=== PATIENT | male | born 1985 | race African-American/Black ===

== ENCOUNTER 2018-05-04 15:59 | Emergency (ER) | payer MEDICARE, MEDICAID ==
[2018-05-04 16:12] VITALS: BP 147/78
[2018-05-04] MEDS ORDERED: BACLOFEN 20 MG TABLET PO ONE (16:59)
[2018-05-04] MEDS ORDERED: KETOROLAC TROMETHAMINE 60 MG/2 ML SDV IM ONE (16:59)
--- NOTE | 2018-05-04 17:04 | ER Document Report ---
ED Neck/Back Problem - General Chief Complaint: Back Pain Stated Complaint: BACK PAIN Time Seen by Provider: 05/04/18 16:59 Mode of Arrival: Ambulatory Information source: Patient Notes: Chief complaint: Upper mid back pain History of complain:( obtained from----patient) 33 years old male with a history of sleep apnea was supposed to sleep with CPAP machine, was not sleeping with it for the last few days due to lack of electricity. Developed mid upper back pain therefore present to the ED. Denies any radiation of the pain to the arms denies any numbness tingling sensation. Denies any weakness. Denies any difficulty in breathing. Onset: Gradual Duration: Last 3 4 days Severity: Moderate Quality: Sharp Context: As above Exacerbating factor and relieving factors: Change of position REVIEW OF SYSTEMS: CONSTITUTIONAL : Denies fever, chills, or sweats. Denies recent illness. EENT: Denies eye, ear, throat, or mouth pain or symptoms. Denies nasal or sinus congestion or discharge. Denies throat, tongue, or mouth swelling or difficulty swallowing. CARDIOVASCULAR: Denies chest pain. Denies palpitations or racing or irregular heart beat. Denies ankle edema. RESPIRATORY: Denies cough, cold, or chest congestion. Denies shortness of breath, difficulty breathing, or wheezing. GASTROINTESTINAL: Denies distention. Denies nausea, vomiting, or diarrhea. Denies blood in vomitus, stools, or per rectum. Denies black, tarry stools. Denies constipation. GENITOURINARY: Denies difficulty urinating, painful urination, burning, frequency, blood in urine, or discharge. FEMALE GENITOURINARY: Denies vaginal bleeding, heavy or abnormal periods, irregular periods. Denies vaginal discharge or odor. MUSCULOSKELETAL: Denies back or neck pain or stiffness. Denies joint pain or swelling. SKIN: Denies rash, lesions or sores. HEMATOLOGIC : Denies easy bruising or bleeding. LYMPHATIC: Denies swollen, enlarged glands. NEUROLOGICAL: Denies confusion or altered mental status. Denies passing out or loss of consciousness. Denies dizziness or lightheadedness. Denies headache. Denies weakness or paralysis or loss of use of either side. Denies problems with gait or speech. Denies sensory loss, numbness, or tingling. Denies seizures. PSYCHIATRIC: Denies anxiety or stress. Denies depression, suicidal ideation, or homicidal ideation. ALL OTHER SYSTEMS REVIEWED AND NEGATIVE. PHYSICAL EXAMINATION: GENERAL: Well-appearing, well-nourished and in no acute distress. Morbid obesity mild to moderate discomfort HEAD: Atraumatic, normocephalic. EYES: Pupils equal round and reactive to light, extraocular movements intact, conjunctiva are normal. ENT: Nares patent, oropharynx clear without exudates. Moist mucous membranes. NECK: Normal range of motion, supple without lymphadenopathy LUNGS: Breath sounds clear to auscultation bilaterally and equal. No wheezes rales or rhonchi. HEART: Regular rate and rhythm without murmurs ABDOMEN: Soft, nontender, nondistended abdomen. No guarding, no rebound. No masses appreciated. Examination of genitals-deferred Musculoskeletal: Normal range of motion, no pitting or edema. No cyanosis. NEUROLOGICAL: Cranial nerves grossly intact. Normal speech, normal gait. Normal sensory, motor exams PSYCH: Normal mood, normal affect. SKIN: Warm, Dry, normal turgor, no rashes or lesions noted. Examination of the back= sharp tenderness noted over the left trapezoid muscle at the insertion to the scapula. Dictation was performed using [employer] voice recognition software TRAVEL OUTSIDE OF THE [place] IN LAST 30 DAYS: No - HPI Notes: Dictated - Related Data Allergies/Adverse Reactions: No Known Allergies Allergy (Verified 05/04/18 16:03) Past Medical History - Social History Smoking Status: Never Smoker Frequency of alcohol use: None Drug Abuse: None Lives with: Family Family History: Reviewed & Not Pertinent Patient has suicidal ideation: No Patient has homicidal ideation: No - Past Medical History Cardiac Medical History: Reports: Hx Hypertension Denies: Hx Heart Attack Pulmonary Medical History: Denies: Hx Asthma Neurological Medical History: Denies: Hx Cerebrovascular Accident, Hx Seizures Renal/ Medical History: Denies: Hx Peritoneal Dialysis GI Medical History: Denies: Hx Hepatitis, Hx Hiatal Hernia, Hx Ulcer Infectious Medical History: Denies: Hx Hepatitis Past Surgical History: Denies: Hx Open Heart Surgery, Hx Pacemaker Review of Systems - Review of Systems Notes: Dictated Physical Exam - Vital signs Vitals: Temp Pulse Resp BP Pulse Ox 98.7 F 92 18 147/78 H 96 05/04/18 16:10 05/04/18 16:10 05/04/18 16:10 05/04/18 16:10 05/04/18 16:10 - Notes Notes: Dictated Course - Re-evaluation Re-evalutation: 05/04/18 17:03 Given Toradol and baclofen - Vital Signs Vital signs: Temp Pulse Resp BP Pulse Ox 98.7 F 92 18 147/78 H 96 05/04/18 16:10 05/04/18 16:10 05/04/18 16:10 05/04/18 16:10 05/04/18 16:10 Discharge - Discharge Clinical Impression: Upper back pain Condition: Fair Disposition: HOME, SELF-CARE Instructions: Muscle Strain ([facility]) Prescriptions: Baclofen [Baclofen 20 Mg Tablet] 20 mg PO TID #30 tablet Hydrocodone/Acetaminophen [Hydrocodon-Acetaminophen 5-325] 1 each PO TID #20 tablet Referrals: EUSEBIO RAMIREZ MD [Primary Care Provider] - Follow up as needed
== END 2018-05-04 17:00 | disposition home or self-care (01) ==
LOC: ER 15:59
DX: M54.6 Pain in thoracic spine (principal)
CPT/HCPCS: 99283; 96372; J1885; A9270; J3490

== ENCOUNTER 2020-09-02 20:45 | Emergency (ER) | payer MEDICARE, MEDICAID ==
[2020-09-02] MEDS ORDERED: ACETAMINOPHEN 325 MG TABLET PO ONE (21:15)
[2020-09-02] MEDS ORDERED: DEXAMETHASONE SOD PHOS INJ 10 MG/1 ML VIAL IV ONE (21:15)
[2020-09-02] MEDS ORDERED: IPRATROPIUM/ALBUTEROL 0.5-2.5 MG/3 ML AMPUL NEB ONE (21:16)
--- NOTE | 2020-09-02 21:17 | ER Document Report ---
ED General - General Chief Complaint: Shortness Of Breath Stated Complaint: SHORTNESS OF BREATH Primary Care Provider: ISADORA ANSARI MD [Primary Care Provider] - Follow up as needed TRAVEL OUTSIDE OF THE [place] IN LAST 30 DAYS: No - HPI Notes: Chief Complaint: Shortness of breath cough Covid Historian: History obtained from patient HPI: This is a 35-year-old male presents to the ER complaining of shortness of breath related to Covid infection. Patient says he tested positive on 08/30. No treatments tried. Denies fevers, chest pain, abdominal pain, nausea vomiting diarrhea. Patient is tolerating p.o. intake. Denies history of asthma. pt does have sleep apnea and uses cpap at night. ROS: Constitutional: no fevers. HEENT: no BRYANT, sore throat, or vision changes. CV: no chest pain or palpitations. Resp: Shortness of breath, cough GI: no abdominal pain, or n/v/d. : no dysuria, hematuria, or incont. MSK: no back pain, no joint swelling/redness. Skin: no rashes or itching. Neuro: no seizures, weakness, numbness, or confusion. Hematological: no ecchymosis or easy bleeding. Endocrine: no polyuria/polydipsia, no heat/cold intolerance. Psych: no SI/HI, AH/VH or memory loss. PMHx: Reviewed and agree as charted by RN. PSHx: Reviewed and agree as charted by RN. SOCHx: Reviewed and agree as charted by RN. FHX: No significant familial comorbid conditions directly related to patient complaint Current Medications: Reviewed and agree with the patient medications as charted by the RN. Allergies: Reviewed and agree with the listed allergies as charted by the RN Physical Exam: Vitals: Reviewed in chart as documented by RN. General: Alert and in NAD. Head: Normocephalic; atraumatic Eyes: PERRLA, Conjunctivae clear sclerae non-icteric bilat ENT: no soft palate swelling or uvular deviation Neck: trachea midline, no unilateral swelling/tenderness/lymphadenopathy CV: RRR, no M/R/G; symmetric distal pulses Resp: tachypenic, poor air movement, expiratory wheeze to bilat mid . no stridor GI: abd soft and nondistended. NTTP. normal BS. no masses/HSM. no CVAT bilat MSK: FROM of all extremities. No midline CTL spine tenderness/deformity Skin: warm, moist, good turgor. no rash/lesions Neuro: Alert and oriented X 4. following CN 2-12 intact. no unilateral weakness/numbness Psych: No SI/HI or AH/VH. Medical Decision-Making: Medical Decision-making/Differential Diagnosis: Consider various etiologies including but not limited to covid, ARF, ARDS, asthma exacerbation, pneumonia, CAP, viral pneumonia, hypoxia, strep pharyngitis, viral pharyngitis, other pharyngitis, celeste-tonsillar abscess (unlikely), retropharyngeal abscess (unlikely), Acute Suppurative Otitis media, otalgia, upper respiratory infection, viral syndrome, bronchitis, sinusitis, ect Plan- will get ecg, cxr, basic labs, gentle IVF, 10mg IV decadron, RT duoneb, prn supplemenal O2. Pts O2 sats are mid-high 90's on RA. he is tachypneic . symptoms improving w/ nebs per pt. able to speak in full sentences. pt does have expiratory wheezes. will continue to monitor pt, possible 60min neb vs terbutaline. prn abx. pt is alert and oriented in the ED and sitting [place] doing nebs at this time. pending labs/imaging at this time. This course of action was discussed with the patient and/or family. They were amenable to this, verbalized understanding, and were without further questions. - Related Data Allergies/Adverse Reactions: No Known Allergies Allergy (Verified 05/04/18 16:03) Home Medications: Metformin. Metoprolol Past Medical History - Social History Smoking Status: Never Smoker Chew tobacco use (# tins/day): No Family History: Reviewed & Not Pertinent - Past Medical History Cardiac Medical History: Reports: Hx Hypertension Denies: Hx Heart Attack Pulmonary Medical History: Denies: Hx Asthma Neurological Medical History: Denies: Hx Cerebrovascular Accident, Hx Seizures Endocrine Medical History: Reports: Hx Diabetes Mellitus Type 2 Renal/ Medical History: Denies: Hx Peritoneal Dialysis GI Medical History: Denies: Hx Hepatitis, Hx Hiatal Hernia, Hx Ulcer Infectious Medical History: Denies: Hx Hepatitis Past Surgical History: Denies: Hx Open Heart Surgery, Hx Pacemaker Physical Exam - Vital signs Vitals: Resp 40 H 09/02/20 20:50 Course - Re-evaluation Re-evalutation: 09/02/20 23:20 respiratory rate in mid 20's, monitor not accurate as it keeps reports RR in the 40's. Pt is mildly tachypneic but in no acute resp distress. improving since steroids and nebs. cxr notes LLL infiltrate, likely covid related. Pt is afebrile and has a normal WBC- sepsis unlikely. will get CTA r/o r/o PE. 09/02/20 23:22 09/03/20 01:43 pt feeling better after IVF, decadron, and duoneb. O2 sats 95% on RA. RR 25. monitor reports rate at 40 but this is not accurate. CTA neg for PE- multifocal pneumonitis noted discussed resulted and plan with pt. he will monitor his O2 at home, instructed to return if 90% or lower. wear cpap at night. will d/c w/ azithro, prednisone, and albuterol inhaler. pcp f/u in 2 days for recheck. return factors discussed. - Vital Signs Vital signs: Temp Pulse Resp BP Pulse Ox 98.7 F 120 H 24 H 152/70 H 96 09/03/20 01:20 09/02/20 20:58 09/03/20 01:20 09/03/20 01:01 09/03/20 01:20 - Laboratory Results Result Diagrams: 09/02/20 21:35 09/02/20 21:35 Laboratory Results Interpreted: 09/02/20 09/02/20 21:35 21:35 Hgb 13.2 L MCV 79 L MCH 26.6 L RDW 14.6 H BUN 6 L Glucose 140 H Critical Laboratory Results Reviewed: No Critical Results - Radiology Results Critical Radiology Results Reviewed: No Critical Results Attending or Supervising Physician who Reviewed Radiology: EDENILSON STARR - LLL infiltrate on CXR - EKG Interpretation by Mo EKG shows normal: Sinus rhythm Rate: Tachycardia - 104 Rhythm: NSR [place]/QRS: No: Right axis deviation, Left axis deviation, RBBB, LBBB, IVCD, LAHB/LAFB, LPHB/LPFB, Bifasicular block Voltage: No: Increased voltage, Consistent with LVH, Consistent with RVH, Decreased voltage, Throughout, Limb leads When compared to previous EKG there are: Previous EKG unavailable - reviewed by ED physician- no stemi. Discharge - Discharge Clinical Impression: COVID-19, SOB (shortness of breath) Left lower lobe pneumonia Qualifiers: Pneumonia type: due to unspecified organism Qualified Code(s): J18.9 - Pneumonia, unspecified organism Condition: Stable Disposition: HOME, SELF-CARE Prescriptions: Prednisone [Deltasone 20 mg Tablet] 3 tab PO DAILY 5 Days #15 tablet Albuterol Sulfate [Proair HFA Inhalation Aerosol 8.5 gm MDI] 2 puff IH Q4H PRN #1 mdi PRN Reason: Azithromycin [Zithromax 250 mg Tablet] 250 mg PO ASDIR PRN #6 tablet PRN Reason: Referrals: ISADORA ANSARI MD [Primary Care Provider] - Follow up as needed
[2020-09-02] MEDS ORDERED: RINGERS SOLUTION,LACTATED 1,000 ML IV ONE (21:54)
--- NOTE | 2020-09-02 22:04 | RADIOLOGY REPORT (SQ) ---
EXAM DESCRIPTION: XR CHEST 1 VIEW COMPLETED DATE/TME: 09/02/2020 21:48 CLINICAL HISTORY: 35 years, Male, sob, +covid COMPARISON: None. TECHNIQUE: Upright portable chest x-ray FINDINGS: Cardiomediastinal silhouette without enlargement. Mild to moderate dilatation of the right hemidiaphragm. Suspected mild left lower lobe infiltrate. No additional findings in chest. IMPRESSION: Mild left lower lobe infiltrate.
[2020-09-02 22:47] LABS: ABSOLUTE LYMPHOCYTES (AUTO) 1.1 10^3/uL (0.5-4.7); ABSOLUTE MONOCYTES (AUTO) 0.4 10^3/uL (0.1-1.4); ABSOLUTE NEUT (AUTO) 4.8 10^3/uL (1.7-8.2); BASOPHILS % (AUTO) 0.2 % (0-2); EOSINOPHILS % (AUTO) 0.4 % (0-6); HEMATOCRIT 39.5 % (37.9-51.0); HEMOGLOBIN 13.2 g/dL (13.5-17.0); LYMPHOCYTES % (AUTO) 17.2 % (13-45); MEAN CORPUSCULAR HEMOGLOBIN 26.6 pg (27.0-33.4); MEAN CORPUSCULAR HGB CONC 33.5 g/dL (32.0-36.0); MEAN CORPUSCULAR VOLUME 79 fl (80-97); MONOCYTES % (AUTO) 6.3 % (3-13); PLATELET COUNT 161 10^3/uL (150-450); RED BLOOD COUNT 4.99 10^6/uL (4.35-5.55); RED CELL DISTRIBUTION WIDTH 14.6 % (11.5-14.0); SEGMENTED NEUTROPHILS % (AUTO) 75.9 % (42-78); TOTAL CELLS COUNTED % (AUTO) 100 %; WHITE BLOOD COUNT 6.3 10^3/uL (4.0-10.5)
[2020-09-02 22:59] LABS: ANION GAP 6 (5-19); BLOOD UREA NITROGEN 6 mg/dL (7-20); CALCIUM 8.7 mg/dL (8.4-10.2); CARBON DIOXIDE 29 mmol/L (22-30); CHLORIDE 103 mmol/L (98-107); GLUCOSE 140 mg/dL (75-110); POTASSIUM 4.1 mmol/L (3.6-5.0)
--- NOTE | 2020-09-03 00:25 | RADIOLOGY REPORT (SQ) ---
EXAM DESCRIPTION: CT CHEST ANGIOGRAPHY WITH IV CONTRAST COMPLETED DATE/TME: 09/03/2020 00:10 CLINICAL HISTORY: 35 years, Male, covid +, tachypnea, sob CREAT 0.86 COMPARISON: None. TECHNIQUE: 1090 Images stored on PACS. All CT scanners at this facility use dose modulation, iterative reconstruction, and/or weight based dosing when appropriate to reduce radiation dose to as low as reasonably achievable (ALARA). Axial CTA images with coronal and sagittal MIPS [facility]: Dose Right [facility]: CareDose [facility]: Dose Right [facility]: Teradose 4D [facility]: [employer] LIMITATIONS: None. FINDINGS: Contrast bolus is significantly suboptimal. There is no large or central pulmonary embolus. Evaluation of the distal arterial branches is nondiagnostic. Negative for thoracic aortic aneurysm or dissection. The heart and pericardium are unremarkable. Limited evaluation of the upper abdomen shows fatty infiltrative change to the liver. Osseous structures are grossly intact. No pneumothorax. Airways are patent. Elevation of the right hemidiaphragm. Multifocal airspace opacities bilaterally consistent with multifocal pneumonitis. IMPRESSION: Suboptimal contrast bolus as above. No large or central pulmonary embolus. Multifocal pneumonitis. Imaging features can be seen with viral pneumonia, though are nonspecific and can occur with a variety of infectious and noninfectious processes. [PneInd] TECHNICAL DOCUMENTATION: Quality ID # [id number]: Final reports with documentation of one or more dose reduction techniques (e.g., Automated exposure control, adjustment of the mA and/or kV according to patient size, use of iterative reconstruction technique) copyright 2011 [employer]- All Rights Reserved
[2020-09-03 03:40] VITALS: BP 156/74
--- NOTE | 2020-09-03 07:40 | EKG REPORT ---
SEVERITY:- BORDERLINE ECG - SINUS TACHYCARDIA BORDERLINE T WAVE ABNORMALITIES : Confirmed by: Jayesh Juarez MD 03-Sep-2020 07:40:07
== END 2020-09-03 04:12 | disposition home or self-care (01) ==
LOC: ER 20:45
DX: U07.1 COVID-19 (principal); J12.82 Pneumonia due to coronavirus disease 2019; R06.02 Shortness of breath; E11.9 Type 2 diabetes mellitus without complications; G47.30 Sleep apnea, unspecified
CPT/HCPCS: 93005; 94640; 99285; 96361; 96374; 36415; 85025; 80048; 71045; 71275; 93010; A9270; J7120; J1100

== ENCOUNTER 2020-09-04 20:58 | Inpatient (IN) | payer MEDICARE, MEDICAID ==
--- OUTSIDE RECORDS SUMMARY | 2020-09-04 21:32 | XMS REPORT ---
:1985 [facility] [address] [place] [address] Care Team Providers Name Role Phone Unavailable Unavailable Unavailable Allergies, Adverse Reactions, Alerts This patient has no known allergies or adverse reactions. Medications This patient has no known medications. Problems This patient has no known problems. Procedures This patient has no known procedures. Results This patient has no known results. Social History This patient has no known social history. Vital Signs This patient has no known vital signs.
[2020-09-04] MEDS ORDERED: ACETAMINOPHEN 325 MG TABLET PO ONE (21:58)
[2020-09-04] MEDS ORDERED: DEXAMETHASONE SOD PHOSPHATE INJ 4 MG/1 ML VIAL IV ONE (21:58)
--- NOTE | 2020-09-04 22:08 | ER Document Report ---
ED General - General Chief Complaint: Shortness Of Breath Stated Complaint: SHORTNESS OF BREATH Time Seen by Provider: 09/04/20 21:57 Primary Care Provider: ISADORA ANSARI MD [Primary Care Provider] - Follow up as needed TRAVEL OUTSIDE OF THE [place] IN LAST 30 DAYS: No - HPI Notes: 35-year-old male presents with shortness of breath. Patient is known to be Covid positive. He was seen in the emergency department 2 days ago for evaluation. He presents with progressively worsening shortness of breath, states that he cannot breathe. He is having an awful cough and lightheadedness. Some vomiting if he eats. He denies previous history of lung disease. He is a non-smoker. There is some limitation to HPI given patient's respiratory status. - Related Data Allergies/Adverse Reactions: No Known Allergies Allergy (Verified 05/04/18 16:03) Past Medical History - General Information source: Patient - Social History Smoking Status: Never Smoker Family History: Reviewed & Not Pertinent - Past Medical History Cardiac Medical History: Reports: Hx Hypertension Denies: Hx Heart Attack Pulmonary Medical History: Denies: Hx Asthma Neurological Medical History: Denies: Hx Cerebrovascular Accident, Hx Seizures Endocrine Medical History: Reports: Hx Diabetes Mellitus Type 2 Renal/ Medical History: Denies: Hx Peritoneal Dialysis GI Medical History: Denies: Hx Hepatitis, Hx Hiatal Hernia, Hx Ulcer Infectious Medical History: Denies: Hx Hepatitis Past Surgical History: Denies: Hx Open Heart Surgery, Hx Pacemaker Review of Systems - Review of Systems Constitutional: Fever EENT: No symptoms reported Cardiovascular: denies: Chest pain Respiratory: Cough, Short of breath Gastrointestinal: denies: Abdominal pain Genitourinary: No symptoms reported Male Genitourinary: No symptoms reported Musculoskeletal: No symptoms reported Skin: No symptoms reported Hematologic/Lymphatic: No symptoms reported Neurological/Psychological: No symptoms reported Physical Exam - Vital signs Vitals: Temp 103.1 F H 09/04/20 20:58 - General General appearance: Appears well, Alert In distress: Moderate - HEENT Head: Normocephalic, Atraumatic Extraocular movements intact: Yes Pupils: PERRL - Respiratory Respiratory status: Labored, Tachypnea Breath sounds: Nonproductive cough, Rhonchi - Cardiovascular Rhythm: Tachycardia Heart sounds: Normal auscultation Normal capillary refill: Yes - Abdominal Inspection: Obese Tenderness: Nontender - Extremities General lower extremity: No: Edema - Neurological Neuro grossly intact: Yes Cognition: Normal Orientation: AAOx4 - Psychological Associated symptoms: Anxious - Skin Skin Temperature: Warm Course - Re-evaluation Re-evalutation: 35-year-old male arrives in respiratory distress secondary to his known Covid infection. He is 88% on arrival. On exam patient is tachypneic and has labored breathing, he has rhonchi at the bases. Patient was placed on nasal cannula which did improve his status, however given the extent of his respiratory status decision was made to put patient on BiPAP. I reviewed his ED visit from 2 days ago. He had a CTA done which did not demonstrate any central pulmonary embolus, though there was some limitation to the study. He was discharged home with prednisone and azithromycin. I suspect that his presentation is is due to likely progression of known Covid illness. He has significant risk factors such as morbid obesity, diabetes and hypertension. No pulmonary disease to suggest asthma or COPD exacerbation. 09/05/20 00:31 Leukocytosis present, this could be due to patient's known steroid use. Chronic microcytic anemia. Electrolytes within normal limits. Creatinine within normal limits. Mild transaminitis. Elevated CRP and D-dimer, expect these to be elev ated with known Covid infection. Given that patient just had a CT done 2 days ago, will hold on this study today. Patient was reassessed. He did appear to be more comfortable on BiPAP. He reports that his breathing has improved. I discussed with him that given he is on BiPAP and had some hypoxia, admission is appropriate, he is agreeable for admission for further treatment of respiratory disease due to Covid. 09/05/20 00:57 Patient to be admitted to the hospital service - Vital Signs Vital signs: Temp Pulse Resp BP Pulse Ox 103.1 F H 43 H 139/71 H 100 09/04/20 20:58 09/04/20 23:02 09/04/20 23:02 09/04/20 21:06 - Laboratory Results Result Diagrams: 09/04/20 22:49 09/04/20 22:49 Laboratory Results Interpreted: 09/04/20 09/04/20 09/04/20 22:49 22:49 22:49 WBC 13.7 H D Hgb 12.4 L Hct 37.6 L MCV 78 L MCH 25.8 L RDW 14.2 H Lymph % (Auto) 6.0 L Absolute Neuts (auto) 12.4 H Seg Neutrophils % 90.6 H D-Dimer 0.59 H Glucose 240 H AST 74 H ALT 57 H C-Reactive Protein 217.0 H Urine Protein Urine Glucose (UA) Urine Ascorbic Acid 09/04/20 23:00 WBC Hgb Hct MCV MCH RDW Lymph % (Auto) Absolute Neuts (auto) Seg Neutrophils % D-Dimer Glucose AST ALT C-Reactive Protein Urine Protein 100 H Urine Glucose (UA) 150 H Urine Ascorbic Acid 40 H Critical Laboratory Results Reviewed: No Critical Results - Radiology Results Critical Radiology Results Reviewed: No Critical Results Discharge - Discharge Clinical Impression: Acute respiratory disease due to COVID-19 virus Disposition: ADMITTED INPATIENT Admitting Provider: [facility] Unit Admitted: [facility] Referrals: ISADORA ANSARI MD [Primary Care Provider] - Follow up as needed
[2020-09-04] MEDS ORDERED: GUAIFENESIN 600 MG TABLET.SA PO ONE (22:24)
[2020-09-04] MEDS ORDERED: RINGERS SOLUTION,LACTATED 1,000 ML IV ONE (22:25)
--- NOTE | 2020-09-04 22:59 | RADIOLOGY REPORT (SQ) ---
EXAM DESCRIPTION: XR CHEST 1 VIEW COMPLETED DATE/TME: 09/04/2020 22:15 CLINICAL HISTORY: 35 years, Male, COVID EXAM DESCRIPTION: CHEST SINGLE VIEW CLINICAL HISTORY: COVID COMPARISON: None. FINDINGS: Single view of the chest is submitted. There are bilateral consolidations. Lung volumes are low. Cardiac silhouette is normal. There is no significant pulmonary vascular engorgement. IMPRESSION: Bilateral consolidations.
[2020-09-04 23:06] LABS: ABSOLUTE LYMPHOCYTES (AUTO) 0.8 10^3/uL (0.5-4.7); ABSOLUTE MONOCYTES (AUTO) 0.4 10^3/uL (0.1-1.4); ABSOLUTE NEUT (AUTO) 12.4 10^3/uL (1.7-8.2); BASOPHILS % (AUTO) 0.2 % (0-2); HEMATOCRIT 37.6 % (37.9-51.0); HEMOGLOBIN 12.4 g/dL (13.5-17.0); MEAN CORPUSCULAR HEMOGLOBIN 25.8 pg (27.0-33.4); MEAN CORPUSCULAR VOLUME 78 fl (80-97); MONOCYTES % (AUTO) 3.2 % (3-13); PLATELET COUNT 222 10^3/uL (150-450); RED BLOOD COUNT 4.81 10^6/uL (4.35-5.55); RED CELL DISTRIBUTION WIDTH 14.2 % (11.5-14.0); SEGMENTED NEUTROPHILS % (AUTO) 90.6 % (42-78); TOTAL CELLS COUNTED % (AUTO) 100 %
[2020-09-04 23:07] LABS: WHITE BLOOD COUNT 13.7 10^3/uL (4.0-10.5)
[2020-09-04 23:17] LABS: APPEARANCE,URINE CLEAR; BILIRUBIN,URINE NEGATIVE (NEGATIVE); COLOR,URINE YELLOW; GLUCOSE, URINE 150 mg/dL (NEGATIVE); KETONES,URINE NEGATIVE (NEGATIVE); LEUKOCYTE ESTERASE,URINE NEGATIVE (NEGATIVE); NITRITE,URINE NEGATIVE (NEGATIVE); PROTEIN,URINE 100 mg/dL (NEGATIVE); URINE SPECIFIC GRAVITY 1.014; UROBILINOGEN,URINE NEGATIVE mg/dL (<2.0)
[2020-09-04 23:22] LABS: ALBUMIN 3.9 g/dL (3.5-5.0); ALKALINE PHOSPHATASE 61 U/L (38-126); ANION GAP 10 (5-19); ASPARTATE AMINO TRANSFERASE 74 U/L (17-59); BILIRUBIN,DIRECT 0.2 mg/dL (0.0-0.4); BILIRUBIN,TOTAL 0.4 mg/dL (0.2-1.3); BLOOD UREA NITROGEN 9 mg/dL (7-20); CALCIUM 9.1 mg/dL (8.4-10.2); CARBON DIOXIDE 25 mmol/L (22-30); CHLORIDE 102 mmol/L (98-107); GLUCOSE 240 mg/dL (75-110); POTASSIUM 4.3 mmol/L (3.6-5.0)
[2020-09-05] MEDS ORDERED: KETOROLAC TROMETHAMINE INJ/PF 30 MG/1 ML SDV IV ONE (00:32)
[2020-09-05 01:34] LABS: INTERNATIONAL RATION (INR) 0.99; PROTHROMBIN TIME 13.3 SEC (11.4-15.4)
[2020-09-05 01:35] LABS: PARTIAL THROMBOPLASTIN TIME 32.2 SEC (23.5-35.8)
[2020-09-05] MEDS ORDERED: ACETAMINOPHEN 325 MG TABLET PO PRN (02:04)
[2020-09-05] MEDS ORDERED: GLUCAGON,HUMAN RECOMB 1 MG INJ IM PRN (02:14)
[2020-09-05] MEDS ORDERED: DEXTROSE 50%-WATER 25 GM/50 ML DISP.SYRIN IV PRN ×2 (02:14)
[2020-09-05] MEDS ORDERED: DEXTROSE 40% GEL 15 GM TUBE PO PRN ×2 (02:14)
--- NOTE | 2020-09-05 02:28 | PDOC H&P ---
History of Present Illness Admission Date/PCP: 09/05/20 01:06 ISADORA ANSARI MD Patient complains of: Shortness of breath History of Present Illness: BEHZAD FERRARO JR is a 35 year old male The patient is not feeling well now for about 9 days. He has fever, dry cough. He vomited a few times but it has resolved. No diarrhea. For last couple days developed increasing shortness of breath. He was in the emergency department 2 days ago. He tested positive for coronavirus. He had a CT pulmonary angiogram which did not reveal pulmonary emboli. He was stable on room air and he was discharged home. He continued to have more of more shortness of breath. He came back to the emergency department. He was placed on BiPAP. Now he feels comfortable. Past Medical History Cardiac Medical History: Reports: Hypertension Denies: Myocardial Infarction Pulmonary Medical History: Reports: Sleep Apnea Denies: Asthma Neurological Medical History: Reports: None Denies: Seizures Endocrine Medical History: Reports: Diabetes Mellitus Type 2 Malignancy Medical History: Reports: None GI Medical History: Denies: Hepatitis, Hiatal Hernia Psychiatric Medical History: Reports: None Hematology: Reports: Anemia Denies: Sickle Cell Disease Infectious Medical History: Reports: None Past Surgical History Past Surgical History: Reports: Herniorrhaphy Social History Information Source: Patient Lives with: Alone Smoking Status: Never Smoker Frequency of Alcohol Use: None Hx Recreational Drug Use: No Drugs: None - Advance Directive Resuscitation Status: Full Code Surrogate healthcare decision maker:: His sister Family History Family History: Reviewed & Not Pertinent Parental Family History Reviewed: Yes Children Family History Reviewed: Yes Sibling(s) Family History Reviewed.: Yes Medication/Allergy Home Medications: Baclofen [Baclofen 20 Mg Tablet] 20 mg PO TID #30 tablet 05/04/18 Hydrocodone/Acetaminophen [Hydrocodon-Acetaminophen 5-325] 1 each PO TID #20 tablet 05/04/18 Albuterol Sulfate [Proair HFA Inhalation Aerosol 8.5 gm MDI] 2 puff IH Q4H PRN #1 mdi 09/03/20 Azithromycin [Zithromax 250 mg Tablet] 250 mg PO ASDIR PRN #6 tablet 09/03/20 Prednisone [Deltasone 20 mg Tablet] 3 tab PO DAILY 5 Days #15 tablet 09/03/20 Allergies/Adverse Reactions: No Known Allergies Allergy (Verified 05/04/18 16:03) Review of Systems Constitutional: PRESENT: chills, fever(s), weakness Eyes: ABSENT: visual disturbances Ears: ABSENT: hearing changes Cardiovascular: ABSENT: chest pain, dyspnea on exertion, edema, orthropnea, palpitations Respiratory: PRESENT: cough - No sputum production, dyspnea. ABSENT: hemoptys is, sputum Gastrointestinal: PRESENT: vomiting - It has resolved Genitourinary: ABSENT: dysuria, hematuria Integumentary: ABSENT: rash, wounds Neurological: ABSENT: abnormal gait, abnormal speech, confusion, dizziness, focal weakness, syncope Physical Exam Vital Signs: Temp Pulse Resp BP Pulse Ox 103.1 F H 36 H 117/55 L 100 09/04/20 20:58 09/05/20 01:02 09/05/20 01:02 09/04/20 21:06 Intake & Output 09/03/20 09/04/20 09/05/20 06:59 06:59 06:59 Intake Total 1000 Balance 1000 Weight 163 kg General appearance: PRESENT: mild distress, obese Head exam: PRESENT: atraumatic, normocephalic Eye exam: PRESENT: conjunctiva pink, EOMI, PERRLA. ABSENT: scleral icterus Ear exam: PRESENT: normal external ear exam Neck exam: ABSENT: carotid bruit, JVD, lymphadenopathy, thyromegaly Respiratory exam: PRESENT: crackles, wheezes - Few scattered wheezes Cardiovascular exam: PRESENT: RRR. ABSENT: diastolic murmur, rubs, systolic murmur Pulses: PRESENT: normal dorsalis pedis pul GI/Abdominal exam: PRESENT: normal bowel sounds, soft. ABSENT: distended, guarding, mass, organolmegaly, rebound, tenderness Rectal exam: PRESENT: deferred Musculoskeletal exam: PRESENT: ambulatory Neurological exam: PRESENT: alert, awake, oriented to person, oriented to place, oriented to time, oriented to situation, CN II-XII grossly intact. ABSENT: motor sensory deficit Skin exam: PRESENT: dry, intact, warm. ABSENT: cyanosis, rash Results Laboratory Results: 09/04/20 22:49 09/04/20 22:49 09/04/20 09/04/20 09/04/20 22:49 22:49 23:00 WBC 13.7 H D RBC 4.81 Hgb 12.4 L Hct 37.6 L MCV 78 L MCH 25.8 L MCHC 33.0 RDW 14.2 H Plt Count 222 Seg Neutrophils % 90.6 H Sodium 137.0 Potassium 4.3 Chloride 102 Carbon Dioxide 25 Anion Gap 10 BUN 9 Creatinine 0.91 Est GFR ( Amer) > 60 Glucose 240 H Calcium 9.1 Ferritin 239.00 Total Bilirubin 0.4 AST 74 H Alkaline Phosphatase 61 C-Reactive Protein 217.0 H Total Protein 7.0 Albumin 3.9 Urine Color YELLOW Urine Appearance CLEAR Urine pH 7.0 Ur Specific [place] 1.014 Urine Protein 100 H Urine Glucose (UA) 150 H Urine Ketones NEGATIVE Urine Blood NEGATIVE Urine Nitrite NEGATIVE Ur Leukocyte Esterase NEGATIVE Urine WBC (Auto) 3 Urine RBC (Auto) 1 Impressions: Chest X-Ray 09/04/20 21:58 IMPRESSION: Bilateral consolidations. Assessment and Plan - Diagnosis (1) Acute respiratory failure with hypoxia Is this a current diagnosis for this admission?: Yes Plan: The patient is on BiPAP at this point. Continue BiPAP for now. Close monitoring of respiratory status. (2) Pneumonia due to COVID-19 virus Is this a current diagnosis for this admission?: Yes Plan: Bilateral infiltrates, consistent with bilateral pneumonia secondary to coronavirus. Supportive measures. Dexamethasone. Monitor biomarkers. May repeat CT scan of the chest if D-dimer continue to rise. (3) Hypertension Qualifiers: Hypertension type: essential hypertension Qualified Code(s): I10 - Essential (primary) hypertension Is this a current diagnosis for this admission?: Yes Plan: Continue metoprolol and amlodipine. (4) DM2 (diabetes mellitus, type 2) Qualifiers: Diabetes mellitus long-term insulin use: without long-term use Diabetes mellitus complication status: with hyperglycemia Qualified Code(s): E11.65 - Type 2 diabetes mellitus with hyperglycemia Is this a current diagnosis for this admission?: Yes Plan: Hold Metformin. Patient is hyperglycemic, we may expect worsening hyperglycemia with dexamethasone. Start low-dose Lantus insulin, monitor blood glucose, correction dose insulin with Humalog before meals. (5) Anemia Qualifiers: Anemia type: unspecified type Qualified Code(s): D64.9 - Anemia, unspecified Is this a current diagnosis for this admission?: Yes Plan: He has mild anemia. Monitor hemoglobin. Anemia studies. (6) RAY (obstructive sleep apnea) Is this a current diagnosis for this admission?: Yes Plan: Once he can be weaned off BiPAP he will need nighttime CPAP. He is using CPAP machine at home. - Plan Summary Summary: Patient was admitted with acute respiratory failure requiring BiPAP secondary to coronavirus pneumonia to intermediate care unit. - Time Time Spent with patient: 35 or more minutes Medications reviewed and adjusted accordingly: Yes Anticipated Discharge Disposition: Home, Self Care Anticipated Discharge Timeframe: 5 to 6 day - Inpatient Certification Based on my medical assessment, after consideration of the patient's comorbidities, presenting symptoms, or acuity I expect that the services needed warrant INPATIENT care.: Yes I certify that my determination is in accordance with my understanding of Medicare's requirements for reasonable and necessary INPATIENT services [42 CFR 412.3e].: Yes Medical Necessity: Failure to Improve With Outpatient Therapy, Need Close Monitoring Due to Risk of Patient Decompensation, Need For Continuous Telemetry Monitoring, Risk of Complication if Not Cared For in Hospital
[2020-09-05 06:39] LABS: HEMATOCRIT 36.2 % (37.9-51.0); HEMOGLOBIN 12.2 g/dL (13.5-17.0); MEAN CORPUSCULAR HEMOGLOBIN 26.5 pg (27.0-33.4); MEAN CORPUSCULAR HGB CONC 33.8 g/dL (32.0-36.0); MEAN CORPUSCULAR VOLUME 79 fl (80-97); PLATELET COUNT 205 10^3/uL (150-450); RED BLOOD COUNT 4.61 10^6/uL (4.35-5.55); RED CELL DISTRIBUTION WIDTH 14.4 % (11.5-14.0); WHITE BLOOD COUNT 12.7 10^3/uL (4.0-10.5)
[2020-09-05 07:09] LABS: ALBUMIN 3.5 g/dL (3.5-5.0); ALKALINE PHOSPHATASE 58 U/L (38-126); ANION GAP 9 (5-19); ASPARTATE AMINO TRANSFERASE 61 U/L (17-59); BILIRUBIN,DIRECT 0.3 mg/dL (0.0-0.4); BILIRUBIN,TOTAL 0.5 mg/dL (0.2-1.3); BLOOD UREA NITROGEN 14 mg/dL (7-20); CALCIUM 8.9 mg/dL (8.4-10.2); CARBON DIOXIDE 27 mmol/L (22-30); CHLORIDE 103 mmol/L (98-107); GLUCOSE 321 mg/dL (75-110); POTASSIUM 4.9 mmol/L (3.6-5.0); TOTAL PROTEIN 6.5 g/dL (6.3-8.2)
[2020-09-05 07:15] LABS: CREATINE KINASE 2231 U/L (55-170)
[2020-09-05 08:19] LABS: ABSOLUTE LYMPHOCYTES# (MANUAL) 0.9 10^3/uL (0.5-4.7); ABSOLUTE MONOCYTES # (MANUAL) 0.1 10^3/uL (0.1-1.4); BASOPHILS % (MANUAL) 0 % (0-2); EOSINOPHILS % (MANUAL) 0 % (0-6); LYMPHOCYTES % (MANUAL) 6 % (13-45); MONOCYTES % (MANUAL) 1 % (3-13); SEGMENTED NEUTROPHILS % (MAN) 92 % (42-78); TOTAL CELLS COUNTED 100
[2020-09-05 08:20] LABS: ANISOCYTOSIS SLIGHT; HYPOCHROMASIA SLIGHT; PLATELET COMMENT ADEQUATE
[2020-09-05] MEDS: INSULIN LISPRO 100 UNIT/ML 3 ML VIAL SUBCUT SCH ×3 (08:52→16:55)
[2020-09-05] MEDS ORDERED: ENOXAPARIN SODIUM INJ 40 MG/0.4 ML DISP.SYRIN SUBCUT SCH ×2 (10:00)
[2020-09-05] MEDS ORDERED: INSULIN GLARGINE,HUM.REC.ANLOG 1,000 UNIT/10 ML VIAL SUBCUT SCH (10:00)
[2020-09-05] MEDS: ALBUTEROL SULFATE 0.083% NEB 2.5 MG/3 ML AMPUL NEB PRN (10:06)
[2020-09-05] MEDS: DEXAMETHASONE SOD PHOS INJ 10 MG/1 ML VIAL IV SCH (10:46)
[2020-09-05] MEDS: CHOLECALCIFEROL (D3) 1,000 UNIT (25 MCG) TABLET PO SCH (10:49)
[2020-09-05] MEDS: ASCORBIC ACID 500 MG TABLET PO SCH ×2 (10:49→17:00)
[2020-09-05] MEDS: METOPROLOL SUCCINATE 50 MG TAB.SR.24H PO SCH (10:49)
[2020-09-05] MEDS: ENOXAPARIN SODIUM INJ 100 MG/1 ML DISP.SYRIN SUBCUT SCH ×2 (10:49→21:43)
[2020-09-05] MEDS: AMLODIPINE BESYLATE 10 MG TABLET PO SCH (10:49)
[2020-09-05] MEDS: ZINC SULFATE 220 MG CAPSULE PO SCH (10:49)
[2020-09-05] MEDS: IVERMECTIN 3 MG TABLET PO SCH (10:50)
[2020-09-05] MEDS ORDERED: MORPHINE SULFATE 10 MG/ML INJ IV ONE ×2 (11:17→16:00)
[2020-09-05] MEDS: INSULIN GLARGINE,HUM.REC.ANLOG 1,000 UNIT/10 ML VIAL SUBCUT SCH ×2 (12:10→21:43)
--- NOTE | 2020-09-05 13:44 | RADIOLOGY REPORT (SQ) ---
EXAM DESCRIPTION: CTA CHEST IMAGES COMPLETED DATE/TIME: 09/05/2020 1:20 pm REASON FOR STUDY: SOB, increased RR COMPARISON: 09/02/2020. TECHNIQUE: CT scan of the chest performed using helical scanning technique with dynamic intravenous contrast injection. Images reviewed with lung, soft tissue and bone windows. Reconstructed coronal and sagittal MPR images reviewed. Additional 3 dimensional post-processing performed to develop Maximal Intensity Projection images ([place] P). All images stored on PACS. All CT scanners at this facility use dose modulation, iterative reconstruction, and/or weight based d osing when appropriate to reduce radiation dose to as low as reasonably achievable (ALARA). [facility]: Dose Right [facility]: CareDose [facility]: Dose Right [facility]: Teradose 4D [facility]: [place] CONTRAST TYPE AND DOSE: contrast/concentration: Isovue 350.00 mmol/ml; Total Contrast Delivered: 90. 0 ml; Total Saline Delivered: 63.0 ml Contrast bolus adequate for pulmonary arteries and aorta. RENAL FUNCTION: BUN 14 creatinine 0.88. RADIATION DOSE: CT Rad equipment meets quality standard of care and radiation dose reduction techniq ues were employed. CTDIvol: 6.6 - 66.5 mGy. DLP: 735 mGy-cm. . LIMITATIONS: None. FINDINGS: LUNGS AND PLEURA: Extensive bilateral pulmonary infiltrates. No pleural effusions or pleu ral calcifications. AORTA AND GREAT VESSELS: No aneurysm. No dissection. HEART: No pericardial effusion. No significant coronary artery calcifications. PULMONARY ARTERIES: No emboli visualized in the main pulmonary arteries or the segmental branches. HILAR AND MEDIASTINAL STRUCTURES: No identified masses or abnormal nodes. HARDWARE: None in the chest. UPPER ABDOMEN: No significant findings. Limited exam. THYROID AND OTHER SOFT TISSUES: No masses. No adenopathy. BONES: No acute or significant finding. 3D MIPS: Confirm above findings. OTHER: No other significant finding. IMPRESSION: NORMAL CTA OF THE CHEST. NO PULMONARY EMBOLI. EXTENSIVE MULTIFOCAL PNEUMONIA. THIS HAS WORSENED SINCE 09/02/2020. COMMENT: Quality ID # [id number]: Final reports with documentation of one or more dose reduction techniques (e.g., Automated exposure control, adjustment of the mA and/or kV according to patient size, use of iterative reconstruction technique) TECHNICAL DOCUMENTATION: JOB ID: [id number] 2010 [employer] All Rights Reserved Reading location - IP/workstation name: [email or web address]
[2020-09-05] MEDS ORDERED: MORPHINE SULFATE 10 MG/ML INJ IV PRN (19:00)
--- NOTE | 2020-09-05 19:10 | PDOC PROGRESS REPORT ---
Subjective Date:: 09/05/20 Subjective:: Patient was seen and examined at bedside. Still SOB but according to him less so on the bipap. CTA negative for PE. He was started on ivermectin and steroids for COVID. Reason For Visit: ACUTE HYPOXIC RESPIRATORY FAILURE Physical Exam Vital Signs: Temp Pulse Resp BP Pulse Ox 97 F L 125 H 50 H 178/82 H 91 L 09/05/20 11:26 09/05/20 14:00 09/05/20 14:41 09/05/20 11:26 09/05/20 17:33 Intake & Output 09/04/20 09/05/20 09/06/20 06:59 06:59 06:59 Intake Total 1000 Balance 1000 Weight 162 kg General appearance: PRESENT: cooperative, morbidly obese, other - moderate distress Head exam: PRESENT: atraumatic Eye exam: PRESENT: EOMI, PERRLA Mouth exam: PRESENT: moist Neck exam: PRESENT: full ROM Respiratory exam: PRESENT: rales, symmetrical, unlabored Cardiovascular exam: PRESENT: RRR, +S1, +S2 GI/Abdominal exam: PRESENT: normal bowel sounds, soft. ABSENT: rebound, tenderness Extremities exam: PRESENT: full ROM Musculoskeletal exam: PRESENT: full ROM Neurological exam: PRESENT: alert, awake, oriented to person, oriented to place, oriented to time, oriented to situation Psychiatric exam: PRESENT: normal mood Skin exam: PRESENT: normal color Results Laboratory Results: 09/05/20 06:19 09/05/20 06:19 09/04/20 09/04/20 09/04/20 22:49 22:49 23:00 WBC 13.7 H D RBC 4.81 Hgb 12.4 L Hct 37.6 L MCV 78 L MCH 25.8 L MCHC 33.0 RDW 14.2 H Plt Count 222 Seg Neutrophils % 90.6 H Sodium 137.0 Potassium 4.3 Chloride 102 Carbon Dioxide 25 Anion Gap 10 BUN 9 Creatinine 0.91 Est GFR ( Amer) > 60 Glucose 240 H Calcium 9.1 Ferritin 239.00 Total Bilirubin 0.4 AST 74 H Alkaline Phosphatase 61 C-Reactive Protein 217.0 H Total Protein 7.0 Albumin 3.9 Urine Color YELLOW Urine Appearance CLEAR Urine pH 7.0 Ur Specific [place] 1.014 Urine Protein 100 H Urine Glucose (UA) 150 H Urine Ketones NEGATIVE Urine Blood NEGATIVE Urine Nitrite NEGATIVE Ur Leukocyte Esterase NEGATIVE Urine WBC (Auto) 3 Urine RBC (Auto) 1 09/05/20 09/05/20 06:19 06:19 WBC 12.7 H RBC 4.61 Hgb 12.2 L Hct 36.2 L MCV 79 L MCH 26.5 L MCHC 33.8 RDW 14.4 H Plt Count 205 Seg Neutrophils % Not Reportable Sodium 139.0 Potassium 4.9 Chloride 103 Carbon Dioxide 27 Anion Gap 9 BUN 14 Creatinine 0.88 Est GFR ( Amer) > 60 Glucose 321 H Calcium 8.9 Ferritin Total Bilirubin 0.5 AST 61 H Alkaline Phosphatase 58 C-Reactive Protein 209.0 H Total Protein 6.5 Albumin 3.5 Urine Color Urine Appearance Urine pH Ur Specific [place] Urine Protein Urine Glucose (UA) Urine Ketones Urine Blood Urine Nitrite Ur Leukocyte Esterase Urine WBC (Auto) Urine RBC (Auto) 09/05/20 09/05/20 06:19 06:19 Creatine Kinase 2231 H Troponin I < 0.012 Impressions: Chest X-Ray 09/04/20 21:58 IMPRESSION: Bilateral consolidations. Chest/Abdomen CTA 09/05/20 00:00 IMPRESSION: NORMAL CTA OF THE CHEST. NO PULMONARY EMBOLI. EXTENSIVE MULTIFOCAL PNEUMONIA. THIS HAS WORSENED SINCE 09/02/2020. Assessment and Plan - Diagnosis (1) Acute respiratory failure with hypoxia Is this a current diagnosis for this admission?: Yes Plan: 2/2 COVID 19 Pneumonia continue O2 support via Bipap Treat COVID PRN morphine for dyspnea, please avoid oversedating the patient (2) Pneumonia due to COVID-19 virus Is this a current diagnosis for this admission?: Yes Plan: Bilateral infiltrates, consistent with bilateral pneumonia secondary to coronavirus. - started on Dexamethasone - Started on Ivermectin - will order remdesivir tomorrow - therapeutic lovenox - start Vitamin C, D, zinc, melatonin (3) DM2 (diabetes mellitus, type 2) Qualifiers: Diabetes mellitus parts counterman insulin use: without parts counterman use Diabetes mellitus complication status: with hyperglycemia Qualified Code(s): E11.65 - Type 2 diabetes mellitus with hyperglycemia Is this a current diagnosis for this admission?: Yes Plan: Hold Metformin. - continue lantus BID with SSI - acchucheck - hypoglycemia protocol. (4) Hypertension Qualifiers: Hypertension type: essential hypertension Qualified Code(s): I10 - Essential (primary) hypertension Is this a current diagnosis for this admission?: Yes Plan: Continue metoprolol and amlodipine. (5) RAY (obstructive sleep apnea) Is this a current diagnosis for this admission?: Yes Plan: Once he can be weaned off BiPAP he will need nighttime CPAP. He is using CPAP machine at home. - Plan Summary Summary: >35 minutes spent caring for this patient who is critically ill with COVID pneumonia on Bipap support. - Time Time Spent with patient: 35 or more minutes Medications reviewed and adjusted accordingly: Yes Anticipated Discharge Disposition: Home, Self Care Anticipated Discharge Timeframe: TBD
[2020-09-05] MEDS: MELATONIN 5 MG TABLET PO SCH (21:43)
[2020-09-06 06:56] LABS: ABSOLUTE RETICS # 0.034 10^6/uL (0.028-0.122); RETICULOCYTE COUNT (AUTO) 0.74 % (0.66-2.85)
[2020-09-06 07:11] LABS: IRON(TIBC) 21.2 ug/dL (49-181)
[2020-09-06] MEDS ORDERED: INFLUENZA QUAD (6MOS+) 2020-21 VAC 0.5 ML SYR IM ONE (08:00)
[2020-09-06 08:19] LABS: FOLATE 5.76 ng/mL (>2.76)
[2020-09-06] MEDS: INSULIN LISPRO 100 UNIT/ML 3 ML VIAL SUBCUT SCH ×3 (09:25→16:52)
[2020-09-06] MEDS: METOPROLOL SUCCINATE 50 MG TAB.SR.24H PO SCH (09:26)
[2020-09-06] MEDS: CHOLECALCIFEROL (D3) 1,000 UNIT (25 MCG) TABLET PO SCH (09:26)
[2020-09-06] MEDS: ASCORBIC ACID 500 MG TABLET PO SCH ×2 (09:26→19:02)
[2020-09-06] MEDS: AMLODIPINE BESYLATE 10 MG TABLET PO SCH (09:27)
[2020-09-06] MEDS: ZINC SULFATE 220 MG CAPSULE PO SCH (09:27)
[2020-09-06] MEDS: DEXAMETHASONE SOD PHOS INJ 10 MG/1 ML VIAL IV SCH (09:28)
[2020-09-06] MEDS: ENOXAPARIN SODIUM INJ 100 MG/1 ML DISP.SYRIN SUBCUT SCH ×2 (09:29→22:05)
[2020-09-06] MEDS: INSULIN GLARGINE,HUM.REC.ANLOG 1,000 UNIT/10 ML VIAL SUBCUT SCH ×2 (12:38→22:05)
--- NOTE | 2020-09-06 16:38 | PDOC PROGRESS REPORT ---
Subjective Date:: 09/06/20 Subjective:: Patient was seen and examined at bedside. Still SOB but according to him less so on the bipap. CTA negative for PE. He was started on ivermectin and steroids for COVID. 09/06/20 Patient was seen and examined at bedside. He appears much more comfortable today. Able to take breaks off bipap and go on nasal cannula. He denied any chest pain, palpitations, good appetite. I was able to speak to his sister over speaker phone and give her an update. He is currently on steroids and received ivermectin. Reason For Visit: ACUTE HYPOXIC RESPIRATORY FAILURE Physical Exam Vital Signs: Temp Pulse Resp BP Pulse Ox 97.5 F 97 20 142/94 H 88 L 09/06/20 11:26 09/06/20 11:26 09/06/20 11:26 09/06/20 11:26 09/06/20 11:26 Intake & Output 09/05/20 09/06/20 09/07/20 06:59 06:59 06:59 Intake Total 1000 260 Output Total 475 Balance 1000 -475 260 Weight 162 kg 353.2 kg 106.3 kg General appearance: PRESENT: mild distress, morbidly obese Head exam: PRESENT: atraumatic, normocephalic Eye exam: PRESENT: EOMI, PERRLA Mouth exam: PRESENT: moist Neck exam: PRESENT: full ROM Respiratory exam: PRESENT: crackles, symmetrical, unlabored Cardiovascular exam: PRESENT: RRR, +S1, +S2 GI/Abdominal exam: PRESENT: normal bowel sounds, soft. ABSENT: rebound, tendern ess Extremities exam: PRESENT: full ROM Musculoskeletal exam: PRESENT: full ROM Neurological exam: PRESENT: alert, awake, oriented to person, oriented to place, oriented to time, oriented to situation Psychiatric exam: PRESENT: normal mood Skin exam: PRESENT: normal color Results Laboratory Results: 09/05/20 06:19 09/05/20 06:19 09/06/20 09/06/20 05:57 05:57 Retic Count (auto) 0.74 Iron 21.2 L TIBC 217 L % Saturation 10 Ferritin 287.00 Vitamin B12 886.0 Folate 5.76 09/05/20 09/05/20 06:19 06:19 Creatine Kinase 2231 H Troponin I < 0.012 Impressions: Chest X-Ray 09/04/20 21:58 IMPRESSION: Bilateral consolidations. Chest/Abdomen CTA 09/05/20 00:00 IMPRESSION: NORMAL CTA OF THE CHEST. NO PULMONARY EMBOLI. EXTENSIVE MULTIFOCAL PNEUMONIA. THIS HAS WORSENED SINCE 09/02/2020. Assessment and Plan - Diagnosis (1) Acute respiratory failure with hypoxia Is this a current diagnosis for this admission?: Yes Plan: 2/2 COVID 19 Pneumonia continue O2 support via Bipap Treat COVID PRN morphine for dyspnea, please avoid oversedating the patient (2) Pneumonia due to COVID-19 virus Is this a current diagnosis for this admission?: Yes Plan: Bilateral infiltrates, consistent with bilateral pneumonia secondary to coron avirus. - started on Dexamethasone - Started on Ivermectin - therapeutic lovenox - start Vitamin C, D, zinc, melatonin (3) DM2 (diabetes mellitus, type 2) Qualifiers: Diabetes mellitus termite control servicer insulin use: without termite control servicer use Diabetes mellitus complication status: with hyperglycemia Qualified Code(s): E11.65 - Type 2 diabetes mellitus with hyperglycemia Is this a current diagnosis for this admission?: Yes Plan: Hold Metformin. - continue lantus BID with SSI - acchucheck - hypoglycemia protocol. (4) Hypertension Qualifiers: Hypertension type: essential hypertension Qualified Code(s): I10 - Essential (primary) hypertension Is this a current diagnosis for this admission?: Yes Plan: Continue metoprolol and amlodipine. (5) RAY (obstructive sleep apnea) Is this a current diagnosis for this admission?: Yes Plan: Once he can be weaned off BiPAP he will need nighttime CPAP. He is using CPAP machine at home. - Plan Summary Summary: >35 minutes spent caring for this patient who is critically ill with COVID pneumonia on Bipap support. - Time Time Spent with patient: 25-34 minutes Medications reviewed and adjusted accordingly: Yes Anticipated Discharge Disposition: Home, Self Care Anticipated Discharge Timeframe: tbd
[2020-09-06] MEDS: MELATONIN 5 MG TABLET PO SCH (22:04)
[2020-09-07] MEDS: INSULIN LISPRO 100 UNIT/ML 3 ML VIAL SUBCUT SCH ×6 (09:20→18:18)
[2020-09-07] MEDS: ENOXAPARIN SODIUM INJ 100 MG/1 ML DISP.SYRIN SUBCUT SCH ×2 (09:28→22:22)
[2020-09-07] MEDS: ASCORBIC ACID 500 MG TABLET PO SCH ×2 (09:29→18:18)
[2020-09-07] MEDS: METOPROLOL SUCCINATE 50 MG TAB.SR.24H PO SCH (09:29)
[2020-09-07] MEDS: ZINC SULFATE 220 MG CAPSULE PO SCH (09:29)
[2020-09-07] MEDS: CHOLECALCIFEROL (D3) 1,000 UNIT (25 MCG) TABLET PO SCH (09:29)
[2020-09-07] MEDS: DEXAMETHASONE SOD PHOS INJ 10 MG/1 ML VIAL IV SCH (09:30)
[2020-09-07] MEDS: AMLODIPINE BESYLATE 10 MG TABLET PO SCH (09:30)
[2020-09-07] MEDS: INSULIN GLARGINE,HUM.REC.ANLOG 1,000 UNIT/10 ML VIAL SUBCUT SCH ×2 (09:31→22:21)
[2020-09-07] MEDS: IVERMECTIN 3 MG TABLET PO SCH (09:35)
--- NOTE | 2020-09-07 14:40 | PDOC PROGRESS REPORT ---
Subjective Date:: 09/07/20 Subjective:: Patient was seen and examined at bedside. Still SOB but according to him less so on the bipap. CTA negative for PE. He was started on ivermectin and steroids for COVID. 09/06/20 Patient was seen and examined at bedside. He appears much more comfortable today. Able to take breaks off bipap and go on nasal cannula. He denied any chest pain, palpitations, good appetite. I was able to speak to his sister over speaker phone and give her an update. He is currently on steroids and received ivermectin. Reason For Visit: ACUTE HYPOXIC RESPIRATORY FAILURE Physical Exam Vital Signs: Temp Pulse Resp BP Pulse Ox 98.6 F 94 27 H 134/95 H 97 09/07/20 12:17 09/07/20 12:17 09/07/20 12:17 09/07/20 12:17 09/07/20 12:25 Intake & Output 09/06/20 09/07/20 09/08/20 06:59 06:59 06:59 Intake Total 1290 240 Output Total 475 100 250 Balance -475 1190 -10 Weight 353.2 kg 164 kg General appearance: PRESENT: cooperative, mild distress, morbidly obese Head exam: PRESENT: atraumatic, normocephalic Eye exam: PRESENT: EOMI, PERRLA Mouth exam: PRESENT: moist Neck exam: PRESENT: full ROM Respiratory exam: PRESENT: rales, symmetrical, unlabored Cardiovascular exam: PRESENT: RRR, +S1, +S2 Pulses: PRESENT: +2 pedal pulses bilateral GI/Abdominal exam: PRESENT: normal bowel sounds, soft. ABSENT: rebound, tenderness Extremities exam: PRESENT: full ROM Musculoskeletal exam: PRESENT: full ROM Neurological exam: PRESENT: alert, awake, oriented to person, oriented to place, oriented to time Psychiatric exam: PRESENT: normal mood Skin exam: PRESENT: normal color Results Laboratory Results: 09/05/20 06:19 09/05/20 06:19 09/05/20 09/05/20 06:19 06:19 Creatine Kinase 2231 H Troponin I < 0.012 Impressions: Chest X-Ray 09/04/20 21:58 IMPRESSION: Bilateral consolidations. Chest/Abdomen CTA 09/05/20 00:00 IMPRESSION: NORMAL CTA OF THE CHEST. NO PULMONARY EMBOLI. EXTENSIVE MULTIFOCAL PNEUMONIA. THIS HAS WORSENED SINCE 09/02/2020. Assessment and Plan - Diagnosis (1) Acute respiratory failure with hypoxia Is this a current diagnosis for this admission?: Yes Plan: 2/2 COVID 19 Pneumonia continue O2 support via [place], patient has to wear CPAP at night continue COVID treatment PRN morphine for dyspnea, please avoid oversedating the patient (2) Pneumonia due to COVID-19 virus Is this a current diagnosis for this admission?: Yes Plan: Bilateral infiltrates, consistent with bilateral pneumonia secondary to coronavirus. - COVID positive - started on Dexamethasone - Started on Ivermectin - therapeutic lovenox - start Vitamin C, D, zinc, melatonin (3) DM2 (diabetes mellitus, type 2) Qualifiers: Diabetes mellitus jail insulin use: without jail use Diabetes mellitus complication status: with hyperglycemia Qualified Code(s): E11.65 - Type 2 diabetes mellitus with hyperglycemia Is this a current diagnosis for this admission?: Yes Plan: Hold Metformin. - continue lantus BID, with meals insulin and SSI - acchucheck - hypoglycemia protocol. (4) Hypertension Qualifiers: Hypertension type: essential hypertension Qualified Code(s): I10 - Essential (primary) hypertension Is this a current diagnosis for this admission?: Yes Plan: Continue metoprolol and amlodipine. (5) RAY (obstructive sleep apnea) Is this a current diagnosis for this admission?: Yes Plan: CPAP at night - Plan Summary Summary: . - Time Time Spent with patient: 25-34 minutes Medications reviewed and adjusted accordingly: Yes Anticipated Discharge Disposition: Home, Self Care Anticipated Discharge Timeframe: tbd
[2020-09-07] MEDS: ALBUTEROL SULFATE 0.083% NEB 2.5 MG/3 ML AMPUL NEB PRN (21:09)
[2020-09-07] MEDS: MELATONIN 5 MG TABLET PO SCH (22:21)
[2020-09-08] MEDS ORDERED: GLUCAGON,HUMAN RECOMB 1 MG INJ IM PRN (07:41)
[2020-09-08 08:36] LABS: HEMATOCRIT 38.4 % (37.9-51.0); HEMOGLOBIN 12.8 g/dL (13.5-17.0); MEAN CORPUSCULAR HEMOGLOBIN 26.2 pg (27.0-33.4); MEAN CORPUSCULAR HGB CONC 33.3 g/dL (32.0-36.0); MEAN CORPUSCULAR VOLUME 79 fl (80-97); PLATELET COUNT 357 10^3/uL (150-450); RED BLOOD COUNT 4.88 10^6/uL (4.35-5.55); RED CELL DISTRIBUTION WIDTH 14.1 % (11.5-14.0); WHITE BLOOD COUNT 12.2 10^3/uL (4.0-10.5)
[2020-09-08 08:53] LABS: ALBUMIN 3.3 g/dL (3.5-5.0); ALKALINE PHOSPHATASE 60 U/L (38-126); ANION GAP 6 (5-19); ASPARTATE AMINO TRANSFERASE 35 U/L (17-59); BILIRUBIN,DIRECT 0.3 mg/dL (0.0-0.4); BILIRUBIN,TOTAL 0.5 mg/dL (0.2-1.3); BLOOD UREA NITROGEN 19 mg/dL (7-20); CALCIUM 8.7 mg/dL (8.4-10.2); CARBON DIOXIDE 27 mmol/L (22-30); CHLORIDE 104 mmol/L (98-107); GLUCOSE 213 mg/dL (75-110); POTASSIUM 4.5 mmol/L (3.6-5.0); TOTAL PROTEIN 6.2 g/dL (6.3-8.2)
[2020-09-08] MEDS: INSULIN LISPRO 100 UNIT/ML 3 ML VIAL SUBCUT SCH ×6 (09:00→22:14)
[2020-09-08 09:11] LABS: ABSOLUTE LYMPHOCYTES# (MANUAL) 1.6 10^3/uL (0.5-4.7); ABSOLUTE MONOCYTES # (MANUAL) 1.2 10^3/uL (0.1-1.4); BAND NEUTROPHILS % (MANUAL) 2 % (3-5); BASOPHILS % (MANUAL) 0 % (0-2); EOSINOPHILS % (MANUAL) 0 % (0-6); LYMPHOCYTES % (MANUAL) 11 % (13-45); MONOCYTES % (MANUAL) 10 % (3-13); SEGMENTED NEUTROPHILS % (MAN) 75 % (42-78); TOTAL CELLS COUNTED 100
[2020-09-08 09:12] LABS: ANISOCYTOSIS SLIGHT; HYPOCHROMASIA SLIGHT; PLATELET COMMENT ADEQUATE
[2020-09-08] MEDS: AMLODIPINE BESYLATE 10 MG TABLET PO SCH (10:06)
[2020-09-08] MEDS: METOPROLOL SUCCINATE 50 MG TAB.SR.24H PO SCH (10:06)
[2020-09-08] MEDS: ZINC SULFATE 220 MG CAPSULE PO SCH (10:06)
[2020-09-08] MEDS: DEXAMETHASONE SOD PHOS INJ 10 MG/1 ML VIAL IV SCH (10:07)
[2020-09-08] MEDS: ASCORBIC ACID 500 MG TABLET PO SCH ×2 (10:07→17:18)
[2020-09-08] MEDS: ENOXAPARIN SODIUM INJ 100 MG/1 ML DISP.SYRIN SUBCUT SCH ×2 (10:08→22:16)
[2020-09-08] MEDS: INSULIN GLARGINE,HUM.REC.ANLOG 1,000 UNIT/10 ML VIAL SUBCUT SCH ×2 (10:08→22:15)
[2020-09-08] MEDS: CHOLECALCIFEROL (D3) 1,000 UNIT (25 MCG) TABLET PO SCH (10:10)
--- NOTE | 2020-09-08 14:20 | PDOC PROGRESS REPORT ---
Subjective Date:: 09/08/20 Subjective:: Patient was seen and examined at bedside. Still SOB but according to him less so on the bipap. CTA negative for PE. He was started on ivermectin and steroids for COVID. 09/06/20 Patient was seen and examined at bedside. He appears much more comfortable today. Able to take breaks off bipap and go on nasal cannula. He denied any chest pain, palpitations, good appetite. I was able to speak to his sister over speaker phone and give her an update. He is currently on steroids and received ivermectin. 09/07/20 Patient was seen and examined at bedside. No new complains. He was able to use CPAP last night. Completed 2 doses of Ivermectin 09/08/20 Patient was seen and examined at bedside. He is currently on 3L NC sats 96%. His blood glucose are noted to be elevated. I ordered insulin with meals yesterday on top of lantus and SSI however it seems that its only the sliding scale and lantus that was given. i have asked his nurse to give him the with meals insulin. I was able to speak to his sister aliya to give her an update. Reason For Visit: ACUTE HYPOXIC RESPIRATORY FAILURE Physical Exam Vital Signs: Temp Pulse Resp BP Pulse Ox 99.2 F 93 18 136/91 H 100 09/08/20 11:47 09/08/20 11:47 09/08/20 11:47 09/08/20 11:47 09/08/20 11:47 Intake & Output 09/07/20 09/08/20 09/09/20 06:59 06:59 06:59 Intake Total 1290 985 240 Output Total 100 1825 675 Balance 1190 -840 -435 Weight 164 kg 162.6 kg General appearance: PRESENT: cooperative, mild distress, morbidly obese Head exam: PRESENT: atraumatic, normocephalic Eye exam: PRESENT: EOMI, PERRLA Mouth exam: PRESENT: moist Neck exam: PRESENT: full ROM Respiratory exam: PRESENT: rales, symmetrical, unlabored Cardiovascular exam: PRESENT: RRR, +S1, +S2 Pulses: PRESENT: +2 pedal pulses bilateral GI/Abdominal exam: PRESENT: normal bowel sounds, soft. ABSENT: rebound, tenderness Extremities exam: PRESENT: full ROM Musculoskeletal exam: PRESENT: full ROM Neurological exam: PRESENT: alert, awake, oriented to person, oriented to place, oriented to time, oriented to situation Psychiatric exam: PRESENT: normal mood Skin exam: PRESENT: normal color Results Laboratory Results: 09/08/20 08:18 09/08/20 08:18 09/08/20 09/08/20 08:18 08:18 WBC 12.2 H RBC 4.88 Hgb 12.8 L Hct 38.4 MCV 79 L MCH 26.2 L MCHC 33.3 RDW 14.1 H Plt Count 357 Seg Neutrophils % Not Reportable Sodium 137.2 Potassium 4.5 Chloride 104 Carbon Dioxide 27 Anion Gap 6 BUN 19 Creatinine 0.83 Est GFR ( Amer) > 60 Glucose 213 H Calcium 8.7 Total Bilirubin 0.5 AST 35 Alkaline Phosphatase 60 Total Protein 6.2 L Albumin 3.3 L 09/05/20 09/05/20 06:19 06:19 Creatine Kinase 2231 H Troponin I < 0.012 Impressions: Chest X-Ray 09/04/20 21:58 IMPRESSION: Bilateral consolidations. Chest/Abdomen CTA 09/05/20 00:00 IMPRESSION: NORMAL CTA OF THE CHEST. NO PULMONARY EMBOLI. EXTENSIVE MULTIFOCAL PNEUMONIA. THIS HAS WORSENED SINCE 09/02/2020. Assessment and Plan - Diagnosis (1) Acute respiratory failure with hypoxia Is this a current diagnosis for this admission?: Yes Plan: 2/2 COVID 19 Pneumonia continue O2 support via NC, patient has to wear CPAP at night continue COVID treatment PRN morphine for dyspnea, please avoid oversedating the patient (2) Pneumonia due to COVID-19 virus Is this a current diagnosis for this admission?: Yes Plan: Bilateral infiltrates, consistent with bilateral pneumonia secondary to coronavirus. - COVID positive - started on Dexamethasone - completed 2 doses of Ivermectin - therapeutic lovenox - start Vitamin C, D, zinc, melatonin - wean off O2 as tolerated (3) DM2 (diabetes mellitus, type 2) Qualifiers: Diabetes mellitus alf insulin use: without alf use Diabetes mellitus complication status: with hyperglycemia Qualified Code(s): E11.65 - Type 2 diabetes mellitus with hyperglycemia Is this a current diagnosis for this admission?: Yes Plan: Hold Metformin. - A1C 7 so high glucose ar elikley more due to steroids - continue lantus BID, with meals insulin and SSI - acchucheck - hypoglycemia protocol. (4) Hypertension Qualifiers: Hypertension type: essential hypertension Qualified Code(s): I10 - Essential (primary) hypertension Is this a current diagnosis for this admission?: Yes Plan: Continue metoprolol and amlodipine. (5) RAY (obstructive sleep apnea) Is this a current diagnosis for this admission?: Yes Plan: CPAP at night (6) Autism Is this a current diagnosis for this admission?: Yes Plan: - mild autism as confirmed by her sister - Time Time Spent with patient: 15-24 minutes Medications reviewed and adjusted accordingly: Yes Anticipated Discharge Disposition: Home, Self Care Anticipated Discharge Timeframe: tbd
[2020-09-08] MEDS: MELATONIN 5 MG TABLET PO SCH (22:15)
[2020-09-09] MEDS: DEXAMETHASONE SOD PHOS INJ 10 MG/1 ML VIAL IV SCH (09:08)
[2020-09-09] MEDS: CHOLECALCIFEROL (D3) 1,000 UNIT (25 MCG) TABLET PO SCH (09:08)
[2020-09-09] MEDS: ASCORBIC ACID 500 MG TABLET PO SCH ×4 (09:08→17:01)
[2020-09-09] MEDS: METOPROLOL SUCCINATE 50 MG TAB.SR.24H PO SCH (09:08)
[2020-09-09] MEDS: INSULIN LISPRO 100 UNIT/ML 3 ML VIAL SUBCUT SCH ×7 (09:08→21:52)
[2020-09-09] MEDS: ENOXAPARIN SODIUM INJ 100 MG/1 ML DISP.SYRIN SUBCUT SCH ×2 (09:08→21:53)
[2020-09-09] MEDS: ZINC SULFATE 220 MG CAPSULE PO SCH (09:08)
[2020-09-09] MEDS: AMLODIPINE BESYLATE 10 MG TABLET PO SCH (09:08)
[2020-09-09] MEDS: INSULIN GLARGINE,HUM.REC.ANLOG 1,000 UNIT/10 ML VIAL SUBCUT SCH ×2 (09:09→21:53)
[2020-09-09] MEDS ORDERED: METHYLPREDNISOLONE INJ 40 MG/1 ML SDV IV SCH (10:00)
[2020-09-09] MEDS: METHYLPREDNISOLONE INJ 40 MG/1 ML SDV IV SCH ×2 (11:31→21:53)
[2020-09-09] MEDS: FAMOTIDINE INJ/PF 20 MG/2 ML SDV IV SCH ×2 (11:31→21:53)
[2020-09-09] MEDS: VITAMIN B COMPLEX TABLET PO SCH (11:34)
[2020-09-09] MEDS: IVERMECTIN 3 MG TABLET PO SCH (12:13)
--- NOTE | 2020-09-09 14:50 | PDOC PROGRESS REPORT ---
Subjective Subjective:: Per Previous Physician: "Patient was seen and examined at bedside. Still SOB but according to him less so on the bipap. CTA negative for PE. He was started on ivermectin and steroids for COVID. 09/06/20 Patient was seen and examined at bedside. He appears much more comfortable today. Able to take breaks off bipap and go on nasal cannula. He denied any chest pain, palpitations, good appetite. I was able to speak to his sister over speaker phone and give her an update. He is currently on steroids and received ivermectin. 09/07/20 Patient was seen and examined at bedside. No new complains. He was able to use CPAP last night. Completed 2 doses of Ivermectin 09/08/20 Patient was seen and examined at bedside. He is currently on 3L NC sats 96%. His blood glucose are noted to be elevated. I ordered insulin with meals yesterday on top of lantus and SSI however it seems that its only the sliding scale and lantus that was given. i have asked his nurse to give him the with meals insulin. I was able to speak to his sister aliya to give her an update. " 09/09 Patient overall seems to be improving. He is comfortable on nasal cannula oxygen currently and we need to be actively weaning this down. We can hold supp lemental oxygen for resting saturations above or at 92%. Instituted weight- based ivermectin to complete a total of 5 days per current guidelines having already completed 2 days previously. Changed dexamethasone to methylprednisolone and added Pepcid per guidelines. I suspect he will be able to leave the hospital in the next 2 to 3 days if he continues to improve. Reason For Visit: ACUTE HYPOXIC RESPIRATORY FAILURE Physical Exam Vital Signs: Temp Pulse Resp BP Pulse Ox 97.4 F 86 21 H 137/83 H 92 09/09/20 12:02 09/09/20 12:02 09/09/20 12:02 09/09/20 12:02 09/09/20 12:32 Intake & Output 09/08/20 09/09/20 09/10/20 06:59 06:59 06:59 Intake Total 985 1100 Output Total 1825 1525 Balance -840 -425 Weight 162.6 kg 162.2 kg Exam: General appearance: PRESENT: no acute distress, well-developed, well-nourished, morbidly obese -[place] male BMI 47.7 Head exam: PRESENT: atraumatic, normocephalic Eye exam: PRESENT: conjunctiva pink. ABSENT: scleral icterus Mouth exam: PRESENT: moist Respiratory exam: PRESENT: clear to auscultation christiano. ABSENT: rales, rhonchi, wheezes Cardiovascular exam: PRESENT: RRR. ABSENT: diastolic murmur, rubs, systolic murmur GI/Abdominal exam: PRESENT: normal bowel sounds, soft. ABSENT: distended, guarding, mass, organolmegaly, rebound, tenderness Neurological exam: PRESENT: alert, awake, oriented to person, oriented to place, oriented to time, oriented to situation Psychiatric exam: PRESENT: appropriate affect, normal mood Skin exam: PRESENT: dry, intact, warm Results Laboratory Results: 09/08/20 08:18 09/08/20 08:18 09/05/20 09/05/20 06:19 06:19 Creatine Kinase 2231 H Troponin I < 0.012 Impressions: Chest X-Ray 09/04/20 21:58 IMPRESSION: Bilateral consolidations. Chest/Abdomen CTA 09/05/20 00:00 IMPRESSION: NORMAL CTA OF THE CHEST. NO PULMONARY EMBOLI. EXTENSIVE MULTIFOCAL PNEUMONIA. THIS HAS WORSENED SINCE 09/02/2020. Assessment and Plan - Diagnosis (2) Acute respiratory failure with hypoxia Is this a current diagnosis for this admission?: Yes (3) Autism Is this a current diagnosis for this admission?: Yes (4) DM2 (diabetes mellitus, type 2) Qualifiers: Diabetes mellitus retirement insulin use: without terminal makeup operator use Diabetes mellitus complication status: with hyperglycemia Qualified Code(s): E11.65 - Type 2 diabetes mellitus with hyperglycemia Is this a current diagnosis for this admission?: Yes (5) Hypertension Qualifiers: Hypertension type: essential hypertension Qualified Code(s): I10 - Essential (primary) hypertension Is this a current diagnosis for this admission?: Yes (6) RAY (obstructive sleep apnea) Is this a current diagnosis for this admission?: Yes (7) Pneumonia due to COVID-19 virus Is this a current diagnosis for this admission?: Yes - Plan Summary Summary: (1) Acute respiratory failure with hypoxia Is this a current diagnosis for this admission?: Yes Plan: -2/2 COVID 19 Pneumonia -continue O2 support via NC, patient has to wear CPAP at night -continue COVID treatment -PRN morphine for dyspnea, please avoid oversedating the patient (2) Pneumonia due to COVID-19 virus Is this a current diagnosis for this admission?: Yes Plan: Bilateral infiltrates, consistent with bilateral pneumonia secondary to coronavirus. -Symptoms/history consistent with covid-19 infection -Covid-19 test: + on 09/04 -CXR showed: Bilateral infiltrates consistent with viral pneumonia -CTPA showed: No PE, extensive multifocal pneumonia which is worse from prior imaging -standard of care vitamin supplements: zinc, ascorbic acid, vitamin d, melatonin -maintain magnesium of 2 mg/dL or higher -Current literature does not show clear benefit from the use of remdesivir or plaquenil -supplemental oxygen and BiPAP/CPAP as needed -prn combivent/nebs as able -do not hold anticoagulation unless actively bleeding or platelet count <50 -close monitoring for acute respiratory decline requiring ICU transfer and intubation -ivermectin/doxycycline combination therapy (3) DM2 (diabetes mellitus, type 2) Qualifiers: Diabetes mellitus retirement insulin use: without retirement use Diabetes mellitus complication status: with hyperglycemia Qualified Code(s): E11.65 - Type 2 diabetes mellitus with hyperglycemia Is this a current diagnosis for this admission?: Yes Plan: - Hold Metformin. - A1C 7 so high glucose ar elikley more due to steroids - continue lantus BID, with meals insulin and SSI - acchucheck - hypoglycemia protocol. (4) Hypertension Qualifiers: Hypertension type: essential hypertension Qualified Code(s): I10 - Essential (primary) hypertension Is this a current diagnosis for this admission?: Yes Plan: -Continue metoprolol and amlodipine. (5) RAY (obstructive sleep apnea) Is this a current diagnosis for this admission?: Yes Plan: -CPAP at night (6) Autism Is this a current diagnosis for this admission?: Yes Plan: - mild autism as confirmed by sister - Time Time Spent with patient: 35 or more minutes Medications reviewed and adjusted accordingly: Yes Anticipated Discharge Disposition: Home, Self Care Anticipated Discharge Timeframe: within 72 hours - Inpatient Certification Based on my medical assessment, after consideration of the patient's comorbidit ies, presenting symptoms, or acuity I expect that the services needed warrant INPATIENT care.: Yes I certify that my determination is in accordance with my understanding of [employer] [facility]'s requirements for reasonable and necessary INPATIENT services [42 CFR 412.3e].: Yes Medical Necessity: Significant Comorbidiites Make Outpatient Treatment Too Risky, Need Close Monitoring Due to Risk of Patient Decompensation, Risk of Complication if Not Cared For in Hospital, Risk of Diagnosis Which Will Require Inpatient Eval/Care/Monitoring
[2020-09-09] MEDS: MELATONIN 5 MG TABLET PO SCH (21:52)
[2020-09-10 06:28] LABS: ABSOLUTE BASOPHILS # (AUTO) 0.1 10^3/uL (0.0-0.2); ABSOLUTE LYMPHOCYTES (AUTO) 1.3 10^3/uL (0.5-4.7); ABSOLUTE MONOCYTES (AUTO) 0.8 10^3/uL (0.1-1.4); ABSOLUTE NEUT (AUTO) 13.3 10^3/uL (1.7-8.2); BASOPHILS % (AUTO) 0.4 % (0-2); HEMOGLOBIN 12.9 g/dL (13.5-17.0); LYMPHOCYTES % (AUTO) 8.1 % (13-45); MEAN CORPUSCULAR HEMOGLOBIN 25.6 pg (27.0-33.4); MEAN CORPUSCULAR HGB CONC 32.2 g/dL (32.0-36.0); MEAN CORPUSCULAR VOLUME 79 fl (80-97); PLATELET COUNT 344 10^3/uL (150-450); RED BLOOD COUNT 5.03 10^6/uL (4.35-5.55); RED CELL DISTRIBUTION WIDTH 14.1 % (11.5-14.0); SEGMENTED NEUTROPHILS % (AUTO) 86.5 % (42-78); TOTAL CELLS COUNTED % (AUTO) 100 %; WHITE BLOOD COUNT 15.4 10^3/uL (4.0-10.5)
[2020-09-10 06:58] LABS: ANION GAP 11 (5-19); BLOOD UREA NITROGEN 16 mg/dL (7-20); CARBON DIOXIDE 23 mmol/L (22-30); CHLORIDE 104 mmol/L (98-107); GLUCOSE 215 mg/dL (75-110); POTASSIUM 4.7 mmol/L (3.6-5.0)
[2020-09-10] MEDS: ASCORBIC ACID 500 MG TABLET PO SCH ×3 (09:04→17:50)
[2020-09-10] MEDS: AMLODIPINE BESYLATE 10 MG TABLET PO SCH (09:04)
[2020-09-10] MEDS: METOPROLOL SUCCINATE 50 MG TAB.SR.24H PO SCH (09:04)
[2020-09-10] MEDS: ENOXAPARIN SODIUM INJ 100 MG/1 ML DISP.SYRIN SUBCUT SCH ×2 (09:05→22:36)
[2020-09-10] MEDS: CHOLECALCIFEROL (D3) 1,000 UNIT (25 MCG) TABLET PO SCH (09:05)
[2020-09-10] MEDS: ZINC SULFATE 220 MG CAPSULE PO SCH (09:05)
[2020-09-10] MEDS: INSULIN LISPRO 100 UNIT/ML 3 ML VIAL SUBCUT SCH ×7 (09:05→22:31)
[2020-09-10] MEDS: FAMOTIDINE INJ/PF 20 MG/2 ML SDV IV SCH ×2 (09:05→22:36)
[2020-09-10] MEDS: IVERMECTIN 3 MG TABLET PO SCH (09:08)
[2020-09-10] MEDS: INSULIN GLARGINE,HUM.REC.ANLOG 1,000 UNIT/10 ML VIAL SUBCUT SCH ×2 (09:26→22:39)
[2020-09-10] MEDS: METHYLPREDNISOLONE INJ 40 MG/1 ML SDV IV SCH ×2 (09:34→22:36)
[2020-09-10] MEDS: VITAMIN B COMPLEX TABLET PO SCH (09:35)
--- NOTE | 2020-09-10 14:04 | PDOC PROGRESS REPORT ---
Subjective Subjective:: Per Previous Physician: "Patient was seen and examined at bedside. Still SOB but according to him less so on the bipap. CTA negative for PE. He was started on ivermectin and steroids for COVID. 09/06/20 Patient was seen and examined at bedside. He appears much more comfortable today. Able to take breaks off bipap and go on nasal cannula. He denied any chest pain, palpitations, good appetite. I was able to speak to his sister over speaker phone and give her an update. He is currently on steroids and received ivermectin. 09/07/20 Patient was seen and examined at bedside. No new complains. He was able to use CPAP last night. Completed 2 doses of Ivermectin 09/08/20 Patient was seen and examined at bedside. He is currently on 3L NC sats 96%. His blood glucose are noted to be elevated. I ordered insulin with meals yesterday on top of lantus and SSI however it seems that its only the sliding scale and lantus that was given. i have asked his nurse to give him the with meals insulin. I was able to speak to his sister aliya to give her an update. " 09/09 Patient overall seems to be improving. He is comfortable on nasal cannula oxygen currently and we need to be actively weaning this down. We can hold supp lemental oxygen for resting saturations above or at 92%. Instituted weight- based ivermectin to complete a total of 5 days per current guidelines having already completed 2 days previously. Changed dexamethasone to methylprednisolone and added Pepcid per guidelines. I suspect he will be able to leave the hospital in the next 2 to 3 days if he continues to improve. 09/10 Patient continues to gradually improve although he is still requiring supplemental oxygen. I discussed with nursing that I believe we can eventually wean him off of this oxygen before leaving the hospital. I discussed this with the patient and he states he is in agreement. Patient has mild autism but states he lives on his own and takes care of his own needs and does not require assistance. If he is unable to successfully wean off supplemental oxygen, he may need home oxygen arranged at discharge until he completely recovers from COVID-19 pneumonia. Reason For Visit: ACUTE HYPOXIC RESPIRATORY FAILURE Physical Exam Vital Signs: Temp Pulse Resp BP Pulse Ox 98.4 F 95 20 137/83 H 94 09/10/20 11:24 09/10/20 11:24 09/10/20 11:24 09/10/20 11:24 09/10/20 12:07 Intake & Output 09/09/20 09/10/20 09/11/20 06:59 06:59 06:59 Intake Total 1100 120 Output Total 1525 975 Balance -425 -855 Weight 162.2 kg 160.8 kg Exam: General appearance: PRESENT: no acute distress, well-developed, well-nourished, morbidly obese -Citizen Of [place] male BMI 47.7, coughing a bit less today Head exam: PRESENT: atraumatic, normocephalic Eye exam: PRESENT: conjunctiva pink. ABSENT: scleral icterus Mouth exam: PRESENT: moist Respiratory exam: PRESENT: clear to auscultation christiano. ABSENT: rales, rhonchi, wheezes Cardiovascular exam: PRESENT: RRR. ABSENT: diastolic murmur, rubs, systolic murmur GI/Abdominal exam: PRESENT: normal bowel sounds, soft. ABSENT: distended, gua rding, mass, organolmegaly, rebound, tenderness Neurological exam: PRESENT: alert, awake, oriented to person, oriented to place, oriented to time, oriented to situation Psychiatric exam: PRESENT: appropriate affect, normal mood Skin exam: PRESENT: dry, intact, warm Results Laboratory Results: 09/10/20 05:43 09/10/20 05:43 09/10/20 09/10/20 05:43 05:43 WBC 15.4 H RBC 5.03 Hgb 12.9 L Hct 40.0 MCV 79 L MCH 25.6 L MCHC 32.2 RDW 14.1 H Plt Count 344 Seg Neutrophils % 86.5 H Sodium 137.6 Potassium 4.7 Chloride 104 Carbon Dioxide 23 Anion Gap 11 BUN 16 Creatinine 0.70 Est GFR ( Amer) > 60 Glucose 215 H Calcium 9.0 09/05/20 09/05/20 06:19 06:19 Creatine Kinase 2231 H Troponin I < 0.012 Impressions: Chest X-Ray 09/04/20 21:58 IMPRESSION: Bilateral consolidations. Chest/Abdomen CTA 09/05/20 00:00 IMPRESSION: NORMAL CTA OF THE CHEST. NO PULMONARY EMBOLI. EXTENSIVE MULTIFOCAL PNEUMONIA. THIS HAS WORSENED SINCE 09/02/2020. Assessment and Plan - Diagnosis (2) Acute respiratory failure with hypoxia Is this a current diagnosis for this admission?: Yes (3) Autism Is this a current diagnosis for this admission?: Yes (4) DM2 (diabetes mellitus, type 2) Qualifiers: Diabetes mellitus intermission coordinator insulin use: without intermission coordinator use Diabetes mellitus complication status: with hyperglycemia Qualified Code(s): E11.65 - Type 2 diabetes mellitus with hyperglycemia Is this a current diagnosis for this admission?: Yes (5) Hypertension Qualifiers: Hypertension type: essential hypertension Qualified Code(s): I10 - Essential (primary) hypertension Is this a current diagnosis for this admission?: Yes (6) RAY (obstructive sleep apnea) Is this a current diagnosis for this admission?: Yes (7) Pneumonia due to COVID-19 virus Is this a current diagnosis for this admission?: Yes - Plan Summary Summary: (1) Acute respiratory failure with hypoxia Is this a current diagnosis for this admission?: Yes Plan: -2/2 COVID 19 Pneumonia -continue O2 support via NC, patient has to wear CPAP at night -continue COVID treatment (2) Pneumonia due to COVID-19 virus Is this a current diagnosis for this admission?: Yes Plan: Bilateral infiltrates, consistent with bilateral pneumonia secondary to coronavirus. -Symptoms/history consistent with covid-19 infection -Covid-19 test: + on 09/04 -CXR showed: Bilateral infiltrates consistent with viral pneumonia -CTPA showed: No PE, extensive multifocal pneumonia which is worse from prior imaging -standard of care vitamin supplements: zinc, ascorbic acid, vitamin d, melatonin -maintain magnesium of 2 mg/dL or higher -Current literature does not show consistent benefit from the use of remdesivir or plaquenil; unclear benefit of convalescent plasma -supplemental oxygen and BiPAP/CPAP as needed -prn combivent/nebs as needed/able -do not hold anticoagulation unless actively bleeding or platelet count <50 -close monitoring for acute respiratory decline requiring ICU transfer and intubation -steroids if requiring supplemental O2 -ivermectin as recommended by [facility] protocol (3) DM2 (diabetes mellitus, type 2) Qualifiers: Diabetes mellitus intermission coordinator insulin use: without usp use Diabetes mellitus complication status: with hyperglycemia Qualified Code(s): E11.65 - Type 2 diabetes mellitus with hyperglycemia Is this a current diagnosis for this admission?: Yes Plan: - Hold Metformin. - A1C 7, uncontrolled blood sugar likely primarily due to to steroids - continue lantus BID, with meals insulin and SSI - acchucheck - hypoglycemia protocol. (4) Hypertension Qualifiers: Hypertension type: essential hypertension Qualified Code(s): I10 - Essential (primary) hypertension Is this a current diagnosis for this admission?: Yes Plan: -Continue metoprolol and amlodipine. (5) RAY (obstructive sleep apnea) Is this a current diagnosis for this admission?: Yes Plan: -CPAP at night (6) Autism Is this a current diagnosis for this admission?: Yes Plan: - mild autism as confirmed by sister - Time Time Spent with patient: 35 or more minutes Medications reviewed and adjusted accordingly: Yes Anticipated Discharge Disposition: Home, Self Care Anticipated Discharge Timeframe: within 48 hours - Inpatient Certification Based on my medical assessment, after consideration of the patient's comorbidities, presenting symptoms, or acuity I expect that the services needed warrant INPATIENT care.: Yes I certify that my determination is in accordance with my understanding of Medicare's requirements for reasonable and necessary INPATIENT services [42 CFR 412.3e].: Yes Medical Necessity: Significant Comorbidiites Make Outpatient Treatment Too Risky, Need Close Monitoring Due to Risk of Patient Decompensation, Need for Nebulizer Therapy and Monitoring of Response, Risk of Complication if Not Cared For in Hospital, Risk of Diagnosis Which Will Require Inpatient Eval/Care/Monitoring
[2020-09-10] MEDS: MELATONIN 5 MG TABLET PO SCH (22:36)
[2020-09-11] MEDS: INSULIN LISPRO 100 UNIT/ML 3 ML VIAL SUBCUT SCH ×4 (09:02→12:27)
[2020-09-11] MEDS: ENOXAPARIN SODIUM INJ 100 MG/1 ML DISP.SYRIN SUBCUT SCH (09:03)
[2020-09-11] MEDS: METHYLPREDNISOLONE INJ 40 MG/1 ML SDV IV SCH (09:03)
[2020-09-11] MEDS: FAMOTIDINE INJ/PF 20 MG/2 ML SDV IV SCH (09:04)
[2020-09-11] MEDS: ASCORBIC ACID 500 MG TABLET PO SCH ×2 (09:05→14:56)
[2020-09-11] MEDS: METOPROLOL SUCCINATE 50 MG TAB.SR.24H PO SCH (09:05)
[2020-09-11] MEDS: ZINC SULFATE 220 MG CAPSULE PO SCH (09:05)
[2020-09-11] MEDS: AMLODIPINE BESYLATE 10 MG TABLET PO SCH (09:05)
[2020-09-11] MEDS: CHOLECALCIFEROL (D3) 1,000 UNIT (25 MCG) TABLET PO SCH (09:05)
[2020-09-11] MEDS: IVERMECTIN 3 MG TABLET PO SCH (09:07)
[2020-09-11] MEDS: VITAMIN B COMPLEX TABLET PO SCH (09:08)
[2020-09-11] MEDS: INSULIN GLARGINE,HUM.REC.ANLOG 1,000 UNIT/10 ML VIAL SUBCUT SCH (09:08)
[2020-09-11 12:18] VITALS: BP 128/82
--- NOTE | 2020-09-11 14:28 | PDOC DISCHARGE SUMMARY ---
Impression - Admit/DC Date/PCP Admission Date/Primary Care Provider: 09/05/20 01:06 ISADORA ANSARI MD Discharge Date: 09/11/20 - Discharge Diagnosis (1) Acute respiratory disease due to COVID-19 virus Is this a current diagnosis for this admission?: Yes (2) Acute respiratory failure with hypoxia Is this a current diagnosis for this admission?: Yes (3) Autism Is this a current diagnosis for this admission?: Yes (4) DM2 (diabetes mellitus, type 2) Is this a current diagnosis for this admission?: Yes (5) Hypertension Is this a current diagnosis for this admission?: Yes (6) RAY (obstructive sleep apnea) Is this a current diagnosis for this admission?: Yes (7) Pneumonia due to COVID-19 virus Is this a current diagnosis for this admission?: Yes - Assessment Summary: Per Previous Physician: "Patient was seen and examined at bedside. Still SOB but according to him less so on the bipap. CTA negative for PE. He was started on ivermectin and steroids for COVID. 09/06/20 Patient was seen and examined at bedside. He appears much more comfortable today. Able to take breaks off bipap and go on nasal cannula. He denied any chest pain, palpitations, good appetite. I was able to speak to his sister over speaker phone and give her an update. He is currently on steroids and received ivermectin. 09/07/20 Patient was seen and examined at bedside. No new complains. He was able to use CPAP last night. Completed 2 doses of Ivermectin 09/08/20 Patient was seen and examined at bedside. He is currently on 3L NC sats 96%. His blood glucose are noted to be elevated. I ordered insulin with meals yesterday on top of lantus and SSI however it seems that its only the sliding scale and lantus that was given. i have asked his nurse to give him the with meals insulin. I was able to speak to his sister aliya to give her an update. " 09/09 Patient overall seems to be improving. He is comfortable on nasal cannula oxygen currently and we need to be actively weaning this down. We can hold supplemental oxygen for resting saturations above or at 92%. Instituted weight- based ivermectin to complete a total of 5 days per current guidelines having already completed 2 days previously. Changed dexamethasone to methylprednisolone and added Pepcid per guidelines. I suspect he will be able to leave the hospital in the next 2 to 3 days if he continues to improve. 09/10 Patient continues to gradually improve although he is still requiring supplemental oxygen. I discussed with nursing that I believe we can eventually wean him off of this oxygen before leaving the hospital. I discussed this with the patient and he states he is in agreement. Patient has mild autism but states he lives on his own and takes care of his own needs and does not require assistance. If he is unable to successfully wean off supplemental oxygen, he may need home oxygen arranged at discharge until he completely recovers from COVID-19 pneumonia. Patient weaned completely off of supplemental oxygen and in agreement with discharge. (1) Acute respiratory failure with hypoxia Is this a current diagnosis for this admission?: Yes Plan: -2/2 COVID 19 Pneumonia -continue O2 support via NC, patient has to wear CPAP at night -Standard COVID treatment initiated on admission (2) Pneumonia due to COVID-19 virus Is this a current diagnosis for this admission?: Yes Plan: Bilateral infiltrates, consistent with bilateral pneumonia secondary to coronavirus. -Symptoms/history consistent with covid-19 infection -Covid-19 test: + on 09/04 -CXR showed: Bilateral infiltrates consistent with viral pneumonia -CTPA showed: No PE, extensive multifocal pneumonia which is worse from prior imaging -standard of care vitamin supplements: zinc, ascorbic acid, vitamin d, melatonin -maintain magnesium of 2 mg/dL or higher -Current literature does not show consistent benefit from the use of remdesivir or plaquenil; unclear benefit of convalescent plasma -supplemental oxygen and BiPAP/CPAP as needed -prn combivent/nebs as needed/able -do not hold anticoagulation unless actively bleeding or platelet count <50 -close monitoring for acute respiratory decline requiring ICU transfer and intubation -steroid taper over 10 days -Total 5 days of ivermectin as recommended by 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 - A1C 7, uncontrolled blood sugar likely primarily due to to steroids -While inpatient continue lantus BID, with meals insulin and SSI - [facility] - hypoglycemia protocol. At discharge, prescribed Metformin and added glipizide twice daily AC BS which can be stopped when he completes his steroid taper in 10 days (4) Hypertension Qualifiers: Hypertension type: essential hypertension Qualified Code(s): I10 - Essential (primary) hypertension Is this a current diagnosis for this admission?: Yes Plan: -Continue metoprolol and amlodipine. (5) RAY (obstructive sleep apnea) Is this a current diagnosis for this admission?: Yes Plan: -CPAP at night (6) Autism Is this a current diagnosis for this admission?: Yes Plan: - mild autism as confirmed by sister - Additional Information Resuscitation Status: Full Code Discharge Diet: As Tolerated, Diabetic Discharge Activity: Activity As Tolerated, Balance Activity w/Rest Referrals: ISADORA ANSARI MD [Primary Care Provider] - 09/26/20 10:30 am Prescriptions: Prednisone [Deltasone 20 mg Tablet] 20 mg PO ASDIR 10 Days #8 tablet Apixaban [Eliquis 2.5 mg Tablet] 2.5 mg PO BID #56 tablet Glipizide [Glucotrol 5 mg Tablet] 5 mg PO BIDACBS #20 tablet Melatonin [Melatonin 5 mg Tablet] 10 mg PO QHS #60 tablet Famotidine [Pepcid] 20 mg PO BID #60 tablet Vitamin B Complex [Vitamin B Complex Tablet] 1 tab PO DAILY #30 tablet Cholecalciferol (Vitamin D3) [Vitamin D3 1000 Unit Tablet] 2,000 unit PO DAILY #30 tablet Zinc Sulfate [Zinc-220 Capsule] 220 mg PO DAILY #30 capsule Home Medications: Albuterol Sulfate [Proair HFA Inhalation Aerosol 8.5 gm MDI] 2 puff IH Q4H PRN #1 mdi 09/03/20 Amlodipine Besylate [Norvasc 10 mg Tablet] 10 mg PO DAILY 09/05/20 Metformin HCl 500 mg PO BID 09/05/20 Metoprolol Succinate [Toprol Xl 50 mg Tab.sr] 50 mg PO DAILY 09/05/20 Apixaban [Eliquis 2.5 mg Tablet] 2.5 mg PO BID #56 tablet 09/11/20 Cholecalciferol (Vitamin D3) [Vitamin D3 1000 Unit Tablet] 2,000 unit PO DAILY #30 tablet 09/11/20 Famotidine [Pepcid] 20 mg PO BID #60 tablet 09/11/20 Glipizide [Glucotrol 5 mg Tablet] 5 mg PO BIDACBS #20 tablet 09/11/20 Melatonin [Melatonin 5 mg Tablet] 10 mg PO QHS #60 tablet 09/11/20 Prednisone [Deltasone 20 mg Tablet] 20 mg PO ASDIR 10 Days #8 tablet 09/11/20 Vitamin B Complex [Vitamin B Complex Tablet] 1 tab PO DAILY #30 tablet 09/11/20 Zinc Sulfate [Zinc-220 Capsule] 220 mg PO DAILY #30 capsule 09/11/20 History of Present Illiness History of Present Illness: BEHZAD FERRARO JR is a 35 year old male Physical Exam Vital Signs: Temp Pulse Resp BP Pulse Ox 98 F 68 18 128/82 H 99 09/11/20 12:17 09/11/20 12:17 09/11/20 12:17 09/11/20 12:17 09/11/20 12:17 Intake & Output 09/10/20 09/11/20 09/12/20 06:59 06:59 06:59 Intake Total 120 2740 Output Total 975 1120 Balance -855 1620 Weight 160.8 kg 160.4 kg Exam: General appearance: PRESENT: no acute distress, well-developed, well-nourished, morbidly obese -Wel[place] male BMI 47.7, states his cough is completely gone today and he would like to go home Head exam: PRESENT: atraumatic, normocephalic Eye exam: PRESENT: conjunctiva pink. ABSENT: scleral icterus Mouth exam: PRESENT: moist Respiratory exam: PRESENT: clear to auscultation christiano. ABSENT: rales, rhonchi, wheezes Cardiovascular exam: PRESENT: RRR. ABSENT: diastolic murmur, rubs, systolic murmur GI/Abdominal exam: PRESENT: normal bowel sounds, soft. ABSENT: distended, guarding, mass, organolmegaly, rebound, tenderness Neurological exam: PRESENT: alert, awake, oriented to person, oriented to place, oriented to time, oriented to situation Psychiatric exam: PRESENT: appropriate affect, normal mood Skin exam: PRESENT: dry, intact, warm Results Laboratory Results: WBC 15.4 10^3/uL (4.0-10.5) H 09/10/20 05:43 RBC 5.03 10^6/uL (4.35-5.55) 09/10/20 05:43 Hgb 12.9 g/dL (13.5-17.0) L 09/10/20 05:43 Hct 40.0 % (37.9-51.0) 09/10/20 05:43 MCV 79 fl (80-97) L 09/10/20 05:43 MCH 25.6 pg (27.0-33.4) L 09/10/20 05:43 MCHC 32.2 g/dL (32.0-36.0) 09/10/20 05:43 RDW 14.1 % (11.5-14.0) H 09/10/20 05:43 Plt Count 344 10^3/uL (150-450) 09/10/20 05:43 Lymph % (Auto) 8.1 % (13-45) L 09/10/20 05:43 [place] % (Auto) 5.0 % (3-13) 09/10/20 05:43 Eos % (Auto) 0.0 % (0-6) 09/10/20 05:43 Baso % (Auto) 0.4 % (0-2) 09/10/20 05:43 Reticulocyte # 0.034 10^6/uL (0.028-0.122) 09/06/20 05:57 Absolute Neuts (auto) 13.3 10^3/uL (1.7-8.2) H 09/10/20 05:43 Absolute Lymphs (auto) 1.3 10^3/uL (0.5-4.7) 09/10/20 05:43 Absolute Monos (auto) 0.8 10^3/uL (0.1-1.4) 09/10/20 05:43 Absolute Eos (auto) 0.0 10^3/uL (0.0-0.6) 09/10/20 05:43 Absolute Basos (auto) 0.1 10^3/uL (0.0-0.2) 09/10/20 05:43 Total Counted 100 09/08/20 08:18 Seg Neutrophils % 86.5 % (42-78) H 09/10/20 05:43 Seg Neuts % (Manual) 75 % (42-78) 09/08/20 08:18 Band Neutrophils % 2 % (3-5) L 09/08/20 08:18 Lymphocytes % (Manual) 11 % (13-45) L 09/08/20 08:18 Atypical Lymphs % 2 % (0) 09/08/20 08:18 Monocytes % (Manual) 10 % (3-13) 09/08/20 08:18 Eosinophils % (Manual) 0 % (0-6) 09/08/20 08:18 Basophils % (Manual) 0 % (0-2) 09/08/20 08:18 Abs Neuts (Manual) 9.4 10^3/uL (1.7-8.2) H 09/08/20 08:18 Abs Lymphs (Manual) 1.6 10^3/uL (0.5-4.7) 09/08/20 08:18 Abs Monocytes (Manual) 1.2 10^3/uL (0.1-1.4) 09/08/20 08:18 Absolute Eos (Manual) 0.0 10^3/uL (0.0-0.6) 09/08/20 08:18 Abs Basophils (Manual) 0.0 10^3/uL (0.0-0.2) 09/08/20 08:18 Platelet Comment ADEQUATE 09/08/20 08:18 Hypochromasia SLIGHT 09/08/20 08:18 Anisocytosis SLIGHT 09/08/20 08:18 Microcytosis SLIGHT 09/08/20 08:18 Retic Count (auto) 0.74 % (0.66-2.85) 09/06/20 05:57 PT 13.3 SEC (11.4-15.4) 09/04/20 22:49 INR 0.99 09/04/20 22:49 APTT 32.2 SEC (23.5-35.8) 09/04/20 22:49 D-Dimer 1.14 ug/mL (0.00-0.50) H 09/05/20 06:19 Sodium 137.6 mmol/L (137-145) 09/10/20 05:43 Potassium 4.7 mmol/L (3.6-5.0) 09/10/20 05:43 Chloride 104 mmol/L (98-107) 09/10/20 05:43 Carbon Dioxide 23 mmol/L (22-30) 09/10/20 05:43 Anion Gap 11 (5-19) 09/10/20 05:43 BUN 16 mg/dL (7-20) 09/10/20 05:43 Creatinine 0.70 mg/dL (0.52-1.25) 09/10/20 05:43 Est GFR ( Amer) > 60 (>60) 09/10/20 05:43 Est GFR (MDRD) Non-Af > 60 (>60) 09/10/20 05:43 Glucose 215 mg/dL (75-110) H 09/10/20 05:43 POC Glucose 180 mg/dL (70-110) H 09/11/20 12:12 Hemoglobin A1c % 7.0 % (4.7-6.0) H 09/07/20 15:01 Calcium 9.0 mg/dL (8.4-10.2) 09/10/20 05:43 Iron 21.2 ug/dL (49-181) L 09/06/20 05:57 TIBC 217 ug/dL (250-450) L 09/06/20 05:57 % Saturation 10 % 09/06/20 05:57 Ferritin 287.00 ng/mL (17.9-464.0) 09/06/20 05:57 Total Bilirubin 0.5 mg/dL (0.2-1.3) 09/08/20 08:18 Direct Bilirubin 0.3 mg/dL (0.0-0.4) 09/08/20 08:18 Neonat Total Bilirubin Not Reportable 09/08/20 08:18 Neonat Direct Bilirubin Not Reportable 09/08/20 08:18 Neonat Indirect Bili Not Reportable 09/08/20 08:18 AST 35 U/L (17-59) 09/08/20 08:18 ALT 47 U/L (<50) 09/08/20 08:18 Alkaline Phosphatase 60 U/L (38-126) 09/08/20 08:18 Lactate Dehydrogenase 401 U/L (120-246) H 09/05/20 06:19 Creatine Kinase 2231 U/L (55-170) H 09/05/20 06:19 Troponin I < 0.012 ng/mL 09/05/20 06:19 C-Reactive Protein 209.0 mg/L (<10.0) H 09/05/20 06:19 Total Protein 6.2 g/dL (6.3-8.2) L 09/08/20 08:18 Albumin 3.3 g/dL (3.5-5.0) L 09/08/20 08:18 Vitamin B12 886.0 pg/mL (239-931) 09/06/20 05:57 Folate 5.76 ng/mL (>2.76) 09/06/20 05:57 Urine Color YELLOW 09/04/20 23:00 Urine Appearance CLEAR 09/04/20 23:00 Urine pH 7.0 (5.0-9.0) 09/04/20 23:00 Ur Specific [place] 1.014 09/04/20 23:00 Urine Protein 100 mg/dL (NEGATIVE) H 09/04/20 23:00 Urine Glucose (UA) 150 mg/dL (NEGATIVE) H 09/04/20 23:00 Urine Ketones NEGATIVE mg/dL (NEGATIVE) 09/04/20 23:00 Urine Blood NEGATIVE (NEGATIVE) 09/04/20 23:00 Urine Nitrite NEGATIVE (NEGATIVE) 09/04/20 23:00 Urine Bilirubin NEGATIVE (NEGATIVE) 09/04/20 23:00 Urine Urobilinogen NEGATIVE mg/dL (<2.0) 09/04/20 23:00 Ur Leukocyte Esterase NEGATIVE (NEGATIVE) 09/04/20 23:00 Urine WBC (Auto) 3 /HPF 09/04/20 23:00 Urine RBC (Auto) 1 /HPF 09/04/20 23:00 Urine Ascorbic Acid 40 (NEGATIVE) H 09/04/20 23:00 09/05/20 06:19 Troponin I < 0.012 Impressions: Chest X-Ray 09/04/20 21:58 IMPRESSION: Bilateral consolidations. Chest/Abdomen CTA 09/05/20 00:00 IMPRESSION: NORMAL CTA OF THE CHEST. NO PULMONARY EMBOLI. EXTENSIVE MULTIFOCAL PNEUMONIA. THIS HAS WORSENED SINCE 09/02/2020. Plan Plan of Treatment: Follow-up with PCP Complete steroid taper Complete 4 weeks anticoagulation course Continue vitamin supplements Time Spent: Greater than 30 Minutes Stroke Is this a Stroke Patient?: No Acute Heart Failure Is this a Heart Failure Patient?: No
== END 2020-09-11 15:38 | disposition home or self-care (01) | DRG 177 ==
LOC: ER 20:58 → EH 09-05 01:06 → 3S 09-05 05:45
PROVIDERS: ADMIT Internal Medicine; ATTEND Internal Medicine
PROC: 5A09557 Assistance with Respiratory Ventilation, Greater than 96 Consecutive Hours, Continuous Positive Airway Pressure (ICD-10-PCS; principal; 2020-09-04)
PROC: 3E02340 Introduction of Influenza Vaccine into Muscle, Percutaneous Approach (ICD-10-PCS; 2020-09-11)
DX: U07.1 COVID-19 (principal); J12.82 Pneumonia due to coronavirus disease 2019; J96.01 Acute respiratory failure with hypoxia; F84.0 Autistic disorder; I10 Essential (primary) hypertension; E11.65 Type 2 diabetes mellitus with hyperglycemia; E66.01 Morbid (severe) obesity due to excess calories; G47.30 Sleep apnea, unspecified; D64.9 Anemia, unspecified; T38.0X5A Adverse effect of glucocorticoids and synthetic analogues, initial encounter; Z79.51 Long term (current) use of inhaled steroids; Z79.84 Long term (current) use of oral hypoglycemic drugs; Z23 Encounter for immunization
CPT/HCPCS: 36415; 71045; 71275; 80048; 80053; 81001; 82550; 82607; 82728; 82746; 82962; 83036; 83540; 83550; 83615; 84484; 85025; 85045; 85379; 85610; 85730; 86140; 90471; 90686; 94660; 96361; 96374; 96375; 99285; G0008; J1100; J1650; J1815; J1885; J2270; J2920; J3490; J7120; J7613; S0028